=== PATIENT | female | born 1965 | race Caucasian/White ===

== ENCOUNTER 2016-10-30 08:07 | Day surgery (SDC) | payer MEDICARE, OTHER ==
[2016-10-27 15:00] VITALS: BMI 28.1
[~2016-10-30 08:07] MED LIST: LACTATED RINGERS 1,000 ML IV SCH; LIDOCAINE 1% 20 ML VIAL (10MG/ML) FOR IV START INTRADERMA PRN
[2016-10-30 09:29] VITALS: RESP 16; TEMP 97.1
[2016-10-30] MEDS ORDERED: PROPOFOL 10 MG/ML 20 ML VIAL IV ONE (10:46)
[2016-10-30] MEDS ORDERED: LIDOCAINE 1% INJ 10MG/ML (20 ML MDV) ONE (10:46)
--- NOTE | 2016-10-30 11:10 | P.OP ---
Date of Procedure: 10/30/16 Preoperative Diagnosis: GI bleed Postoperative Diagnosis: Internal hemorrhoids Procedure(s) Performed: Colonoscopy Anesthesia: MAC Surgeon: Lenin Solo Condition: stable Disposition: PACU Description of Procedure: The patient's placed on the endoscopy table in the lateral position. She received IV sedation. Digital rectal exam was performed which revealed internal hemorrhoids. Flexible colonoscope was then placed patient anus passed throughout the entire colon. The ileocecal valve was visualized. The cecum, ascending and transverse colon appeared normal. The descending and sigmoid colon appeared normal. Scope summer back the rectum this appeared normal. Scope was withdrawn through the anus and there was internal hemorrhoids noted. Scope was withdrawn for patient.
--- NOTE | 2016-10-30 11:12 | P.GSHP ---
History of Present Illness H&P Date: 10/30/16 Chief Complaint: GI bleed This a 51-year-old female who has had issues with rectal bleeding. He presents today for colonoscopy Past Medical History Past Medical History: Fibromyalgia, GERD/Reflux, Hyperlipidemia, Memory Impairment, Osteoarthritis (OA), Thyroid Disorder Additional Past Medical History / Comment(s): multiple brain aneurysm's 2007- affected memory & coordination, Testing scheduled for sleep apnea., Some problems with balance., states knee pain and headaches. History of Any Multi-Drug Resistant Organisms: None Reported Past Surgical History: Joint Replacement, Tubal Ligation Additional Past Surgical History / Comment(s): brain surgery to repair aneurysm' s, Tavo total knees, Past Anesthesia/Blood Transfusion Reactions: No Reported Reaction Past Psychological History: Anxiety, Depression Smoking Status: Former smoker Past Alcohol Use History: None Reported, Rare Additional Past Alcohol Use History / Comment(s): quit smoking 2008. smoked 1/ 2 ppd. smoked 30 years. Past Drug Use History: Marijuana Additional Drug Use History / Comment(s): medical card- states daily use. - Past Family History Father Family Medical History: AFIB, Myocardial Infarction ([place]) Mother Family Medical History: Cancer, Renal Disease Additional Family Medical History / Comment(s): Breast Cancer Medications and Allergies Home Medications Medication Instructions Recorded Confirmed Type ALPRAZolam [Xanax] 1 mg PO QID PRN 12/19/13 10/30/16 History Cyclobenzaprine [Flexeril] 10 mg PO TID PRN 12/19/13 10/30/16 History FLUoxetine HCL [PROzac] 20 mg PO BID 12/19/13 10/30/16 History Fenofibrate,Micronized 67 mg PO BID 12/19/13 10/30/16 History [Fenofibrate] Ferrous Sulfate [Feosol] 325 mg PO DAILY 12/19/13 10/30/16 History HYDROcodone/APAP 10-325MG [[place] 1 each PO Q6H PRN 12/19/13 10/30/16 History 10] Levothyroxine Sodium [Synthroid] 50 mcg PO DAILY 12/19/13 10/30/16 History Omeprazole [PriLOSEC] 40 mg PO BID 12/19/13 10/30/16 History Pregabalin [Lyrica] 300 mg PO BID 12/19/13 10/30/16 History Simvastatin [Zocor] 40 mg PO HS 12/19/13 10/30/16 History traZODone HCL 100 mg PO HS 12/19/13 10/30/16 History Aspirin [Adult Low Dose Aspirin EC] 81 mg PO DAILY 10/27/16 10/30/16 History Baclofen [Lioresal] 20 mg PO TID 10/27/16 10/30/16 History Allergies Allergy/AdvReac Type Severity Reaction Status Date / Time adhesive tape Allergy Unknown Rash/Hives Verified 10/30/16 09:28 ibuprofen [From Motrin] AdvReac STOMACH Verified 10/30/16 09:28 PAIN Surgical - Exam Vital Signs Temp Pulse Resp BP Pulse Ox 97.1 F L 76 16 147/92 98 10/30/16 09:14 10/30/16 09:14 10/30/16 09:14 10/30/16 09:14 10/30/16 09:14 - General well developed, no distress - Eyes PERRL - ENT normal pinna - Neck no masses - Respiratory normal expansion - Cardiovascular Rhythm: regular - Abdomen Abdomen: soft, non tender Assessment and Plan Plan: GI bleed. We'll perform colonoscopy.
[2016-10-30] MEDS ORDERED: LABETALOL 5 MG/ML VIAL MDV IVP ONE (11:44)
[2016-10-30 12:08] VITALS: BP 147/97; PULSE 66
== END 2016-10-30 12:26 | disposition home or self-care (01) ==
LOC: ORWHC2ENDO 08:07
PROVIDERS: ATTEND Surgery
DX: K64.8 Other hemorrhoids (principal); E78.5 Hyperlipidemia, unspecified; M79.7 Fibromyalgia; K21.9 Gastro-esophageal reflux disease without esophagitis; E07.9 Disorder of thyroid, unspecified; F41.9 Anxiety disorder, unspecified; M19.90 Unspecified osteoarthritis, unspecified site; F32.9 Major depressive disorder, single episode, unspecified; Z79.1 Long term (current) use of non-steroidal anti-inflammatories (NSAID); Z87.891 Personal history of nicotine dependence; Z79.899 Other long term (current) drug therapy; Z79.82 Long term (current) use of aspirin; Z79.891 Long term (current) use of opiate analgesic
CPT/HCPCS: 81025; 45378; J2001; J2704

== ENCOUNTER → 2017-01-01 | Outpatient (CLI) | payer MEDICARE, OTHER ==
[2017-01-01 14:16] LABS: Anisocytosis Slight; Basophils # (A) 0.1 k/uL (0-0.2); Basophils % (A) 1 %; CH 28.8; CHCM 30.9; Eosinophils # (A) 0.1 k/uL (0-0.7); Eosinophils % (A) 1 %; HCT 44.7 % (34.0-46.0); HDW 2.67; Hypochromasia Slight; Luc # (Auto) 0.17; Luc % (Auto) 1; Lymphocytes % (A) 20 %; MCH 29.4 pg (25.0-35.0); MCHC 31.3 g/dL (31.0-37.0); MCV 93.9 fL (80.0-100.0); Mean Platelet Volume 9.1; Monocytes # (A) 0.7 k/uL (0-1.0); Monocytes % (A) 4 %; Neutrophils # (A) 11.1 k/uL (1.3-7.7); Neutrophils % (A) 73 %; RBC 4.76 m/uL (3.80-5.40); RDW 16.1 % (11.5-15.5); WBC 15.2 k/uL (3.8-10.6); WBC (Perox) 14.62
== END | disposition home or self-care (01) ==
LOC: LABPAT 13:33
PROVIDERS: ATTEND Obstetrics & Gynecology
DX: Z01.810 Encounter for preprocedural cardiovascular examination (principal); E03.9 Hypothyroidism, unspecified; R94.31 Abnormal electrocardiogram [ECG] [EKG]; N92.0 Excessive and frequent menstruation with regular cycle; Z01.812 Encounter for preprocedural laboratory examination
CPT/HCPCS: 36415; 85025; 93005

== ENCOUNTER → 2017-07-21 | Outpatient (CLI) | payer MEDICARE, OTHER ==
--- NOTE | 2017-07-22 08:25 | ECHOF ---
Referral Reason:R07.9 Chest pain MEASUREMENTS -------- HEIGHT: 162.6 cm WEIGHT: 78.0 kg BP: 124/81 RVIDd: 2.8 cm (< 3.3) IVSd: 1.1 cm (0.6 - 1.1) LVIDd: 3.9 cm (3.9 - 5.3) LVPWd: 1.1 cm (0.6 - 1.1) IVSs: 1.5 cm LVIDs: 2.5 cm LVPWs: 1.4 cm LA Diam: 3.1 cm (2.7 - 3.8) LAESV Index (A-L): 20.71 ml/m Ao Diam: 3.2 cm (2.0 - 3.7) AV Cusp: 2.0 cm (1.5 - 2.6) MV EXCURSION: 13.189 mm (> 18.000) MV EF SLOPE: 61 mm/s (70 - 150) EPSS: 0.6 cm MV E Isai: 0.75 m/s MV DecT: 222 ms MV A Isai: 0.75 m/s MV E/A Ratio: 1.00 FINDINGS -------- Sinus rhythm. This was a technically adequate study. The left ventricular size is normal. There is borderline concentric left ventricular hypertrophy. Overall left ventricular systolic function is normal with, an EF between 55 - 60 %. The right ventricle is normal in size. Normal LA size by volume 22+/-6 ml/m2. The right atrium is normal in size. The aortic valve is trileaflet and appears structurally normal. The mitral valve is normal. The tricuspid valve appears structurally normal. Mild tricuspid regurgitation present. There is no pulmonic regurgitation present. The aortic root size is normal. Normal inferior vena cava with normal inspiratory collapse consistent with estimated right atrial pre ssure of 5 mmHg. The inferior vena cava is mildly dilated. There is no pericardial effusion. CONCLUSIONS -------- 1. Sinus rhythm. 2. This was a technically adequate study. 3. The left ventricular size is normal. 4. There is borderline concentric left ventricular hypertrophy. 5. Overall left ventricular systolic function is normal with, an EF between 55 - 60 %. 6. Normal LA size by volume 22+/-6 ml/m2. 7. The aortic valve is trileaflet and appears structurally normal. 8. The mitral valve is normal. 9. The tricuspid valve appears structurally normal. 10. Mild tricuspid regurgitation present. 11. There is no pulmonic regurgitation present. 12. The aortic root size is normal. 13. Normal inferior vena cava with normal inspiratory collapse consistent with estimated right atrial pressure of 5 mmHg. 14. The inferior vena cava is mildly dilated. 15. There is no pericardial effusion. UTILITY APPRAISER: Ligia Gibson RDCS
== END | disposition home or self-care (01) ==
LOC: RADECHMAIN 14:55
PROVIDERS: ATTEND Family Medicine
DX: I07.1 Rheumatic tricuspid insufficiency (principal); I86.8 Varicose veins of other specified sites
CPT/HCPCS: 93306

== ENCOUNTER → 2017-09-10 | Outpatient (CLI) | payer MEDICARE ==
--- NOTE | 2017-09-11 08:52 | XR ---
EXAM TYPE: LUMBAR SPINE X RAY SERIES COMPARISON: NONE HISTORY: Pain TECHNIQUE: 3 views are submitted. FINDINGS: Alignment is anatomic. The pedicles are intact. The transverse processes are intact. There is hype rtrophic and degenerative change of the spine. Vascular calcifications are noted. IMPRESSION: 1. Multilevel degenerative disc disease.
== END | disposition home or self-care (01) ==
LOC: RADXRMAIN 16:11
PROVIDERS: ATTEND Family Medicine
DX: M51.36 Other intervertebral disc degeneration, lumbar region (principal)
CPT/HCPCS: 72100

== ENCOUNTER → 2017-09-15 | Outpatient (CLI) | payer MEDICARE ==
--- NOTE | 2017-09-16 13:37 | MM ---
Reason for exam: clinical finding. Last mammogram was performed 2 years and 3 months ago. History: Family history of breast cancer in mother at age 50. Physical Findings: Nurse did not find any significant physical abnormalities on exam. MG 3D Diag Mammo W/Cad MATEUS Bilateral CC and MLO view(s) were taken. Prior study comparison: June 19, 2015, bilateral MG diagnostic mammo w CAD MATEUS. July 11, 2014, bilateral MG screening mammo w CAD. The breast tissue is heterogeneously dense. This may lower the sensitivity of mammography. No significant new findings when compared with previous films. These results were verbally communicated with the patient and result sheet given to the patient on 09/15/17. ASSESSMENT: Negative, BI-RAD 1 RECOMMENDATION: Routine screening mammogram of both breasts in 1 year. Manage on a clinical basis with regard to bilateral breast pain.
== END ==
LOC: RADMAMWWP 10:12
PROVIDERS: ATTEND Obstetrics & Gynecology
DX: N64.4 Mastodynia (principal)
CPT/HCPCS: 77066; G0279; 77062

== ENCOUNTER → 2019-03-04 | Outpatient (CLI) | payer MEDICARE, OTHER ==
--- NOTE | 2019-03-05 22:04 | MR ---
EXAMINATION TYPE: MR cervical spine wo con DATE OF EXAM: 03/04/2019 COMPARISON: HISTORY: Cervicalagia TECHNIQUE: Multiplanar, multisequence images of the cervical spine were acquired. C2-C3: No evidence for degenerative disc disease. No disc bulge/herniation or protrusion. No Canal stenosis. Foramina are patent bilaterally. C3-C4: Small posterior disc bulge is present. No spinal stenosis or foraminal encroachment. C4-C5: Small posterior broad-based disc bulge is present. No significant foraminal encroachment or sp inal stenosis. C5-C6: Broad-based disc bulge causes anterior mass effect on the thecal sac. Uncovertebral joint hype rtrophy results in some mild foraminal encroachment left greater than right. C6-C7: Posterior disc bulge causes minimal anterior mass effect on the thecal sac. No significant spi nal stenosis or foraminal encroachment. C7-T1: No evidence for degenerative disc disease. No disc bulge/herniation or protrusion. No Canal stenosis. Foramina are patent bilaterally. Cervical segments are intact. There is normal alignment. Cervical spinal cord is of normal signal. Craniovertebral junction relationships are within normal limits. IMPRESSION: Mild degenerative disc disease.
== END | disposition home or self-care (01) ==
LOC: RADMRIMAIN 12:07
PROVIDERS: ATTEND Neurological Surgery
DX: M50.10 Cervical disc disorder with radiculopathy, unspecified cervical region (principal)
CPT/HCPCS: 72141

== ENCOUNTER → 2020-05-15 | Outpatient (CLI) | payer MEDICARE ==
--- NOTE | 2020-05-17 13:48 | MM ---
Reason for exam: screening (asymptomatic). Last mammogram was performed 2 years and 8 months ago. History: Family history of breast cancer in mother at age 50. Physical Findings: A clinical breast exam by your physician is recommended on an annual basis and results should be correlated with mammographic findings. MG 3D Screening Mammo W/Cad Bilateral CC and MLO view(s) were taken. Prior study comparison: September 15, 2017, bilateral MG 3d diag mammo w/cad MATEUS. June 19, 2015, bilateral MG diagnostic mammo w CAD MATEUS. There are scattered fibroglandular densities. There is chronic nodularity bilaterally. No significant changes when compared with prior studies. ASSESSMENT: Benign, BI-RAD 2 RECOMMENDATION: Routine screening mammogram of both breasts in 1 year.
== END | disposition home or self-care (01) ==
LOC: RADMAMWWP 11:46
PROVIDERS: ATTEND Obstetrics & Gynecology
DX: Z12.31 Encounter for screening mammogram for malignant neoplasm of breast (principal); Z80.3 Family history of malignant neoplasm of breast
CPT/HCPCS: 77063; 77067

== ENCOUNTER 2021-03-28 09:15 | Day surgery (SDC) | payer MEDICARE ==
[2021-03-27 10:19] VITALS: BMI 28.3
[~2021-03-28 09:15] MED LIST changes: -LACTATED RINGERS 1,000 ML IV SCH; +LIDOCAINE 1% (10MG/ML) FOR IV START INTRADERMA PRN; -LIDOCAINE 1% 20 ML VIAL (10MG/ML) FOR IV START INTRADERMA PRN
[2021-03-28 09:56] VITALS: RESP 16; TEMP 97.3
[2021-03-28] MEDS: LACTATED RINGERS 1,000 ML IV SCH ×2 (10:00→10:28)
[2021-03-28] MEDS ORDERED: hydrALAZINE HCL 20 MG/ML 1 ML VIAL IV ONE (10:13)
--- NOTE | 2021-03-28 10:26 | P.GSHP ---
History of Present Illness H&P Date: 03/28/21 Chief Complaint: Rectal bleeding This a 55-year-old female who presents today for colonoscopy. She's had issues with rectal bleeding. Past Medical History Past Medical History: Fibromyalgia, GERD/Reflux, Hyperlipidemia, Memory Impairm ent, Osteoarthritis (OA), Thyroid Disorder Additional Past Medical History / Comment(s): Multiple brain aneurysms, last in 2007, affected memory and coordination, has problems with balance. Chronic knee pain and headaches. History of Any Multi-Drug Resistant Organisms: None Reported Past Surgical History: Joint Replacement, Tubal Ligation Additional Past Surgical History / Comment(s): Brain surgery to repair aneurysms, bilateral total knee replacements. Past Anesthesia/Blood Transfusion Reactions: No Reported Reaction Past Psychological History: Anxiety, Depression Smoking Status: Former smoker Past Alcohol Use History: None Reported Additional Past Alcohol Use History / Comment(s): Quit smoking in 2008, smoked 1/2 ppd for 30 years. Past Drug Use History: Marijuana Additional Drug Use History / Comment(s): Medical Marijuana - daily use. Aware no use 24 hrs prior to procedure. - Past Family History Father Family Medical History: AFIB, Myocardial Infarction ([place]) Mother Family Medical History: Cancer Additional Family Medical History / Comment(s): Breast Cancer. Medications and Allergies Home Medications Medication Instructions Recorded Confirmed Type ALPRAZolam [Xanax] 1 mg PO QID 12/19/13 03/27/21 History FLUoxetine HCL [PROzac] 20 mg PO BID 12/19/13 03/27/21 History HYDROcodone/APAP 10-325MG [[place] 1 tab PO QID PRN 12/19/13 03/27/21 History 10] Levothyroxine Sodium [Synthroid] 50 mcg PO DAILY 12/19/13 03/27/21 History Omeprazole [PriLOSEC] 40 mg PO BID 12/19/13 03/27/21 History Pregabalin [Lyrica] 300 mg PO BID 12/19/13 03/27/21 History Simvastatin [Zocor] 40 mg PO HS 12/19/13 03/27/21 History traZODone HCL 100 mg PO HS 12/19/13 03/27/21 History Aspirin [Adult Low Dose Aspirin EC] 81 mg PO DAILY 10/27/16 03/27/21 History Baclofen [Lioresal] 20 mg PO TID PRN 10/27/16 03/27/21 History Calcium Polycarbophil [Fiber-Lax] 625 mg PO BID 01/13/17 03/27/21 History Fenofibrate 160 mg PO DAILY 01/13/17 03/27/21 History Allergies Allergy/AdvReac Type Severity Reaction Status Date / Time adhesive tape Allergy Unknown Rash/Hives Verified 03/28/21 10:08 ibuprofen [From Motrin] AdvReac STOMACH Verified 03/28/21 10:08 PAIN Surgical - Exam Vital Signs Temp Pulse Resp BP Pulse Ox 97.3 F L 92 16 214/103 96 03/28/21 09:54 03/28/21 09:54 03/28/21 09:54 03/28/21 09:54 03/28/21 09:54 - General well developed, well nourished, no distress - Eyes PERRL - ENT normal pinna - Neck no masses - Respiratory normal expansion - Cardiovascular Rhythm: regular - Abdomen Abdomen: soft, non tender Assessment and Plan Assessment: Rectal bleeding. We'll perform colonoscopy.
[2021-03-28] MEDS ORDERED: GLUCAGON 1 MG/ML VIAL ONE (10:29)
[2021-03-28] MEDS ORDERED: PROPOFOL 10 MG/ML 20 ML VIAL IV ONE (10:29)
[2021-03-28] MEDS ORDERED: LIDOCAINE 1% INJ 10MG/ML (20 ML MDV) ONE (10:29)
[2021-03-28] MEDS ORDERED: LABETALOL 5 MG/ML VIAL MDV ONE (10:29)
--- NOTE | 2021-03-28 10:56 | P.OP ---
Date of Procedure: 03/28/21 Preoperative Diagnosis: Rectal bleeding Postoperative Diagnosis: External hemorrhoids Procedure(s) Performed: Colonoscopy Anesthesia: MAC Surgeon: Lenin Solo Pathology: none sent Condition: stable Disposition: PACU Description of Procedure: Patient's placed on the endoscopy table in the lateral position. She received IV sedation. Digital rectal exam was performed which revealed external hemorrhoids. Flexible colonoscope was then placed patient anus passed throughout colon. The scope was passed beyond the sigmoid colon to tortuous valve. At this point the scope was withdrawn. A pediatric scope was inserted.. Scope was safely placed throughout the entire colon. Ileocecal valve was visua lized. Cecum, ascending and transverse colon appeared normal. In the descending; a few scattered diverticula. Scope was then brought back the rectum and this appeared normal. Scope withdrawn for patient. His presumed patient may have had rectal bleeding from hemorrhoids.
[2021-03-28 11:19] VITALS: BP 179/116; PULSE 73
== END 2021-03-28 11:52 | disposition home or self-care (01) ==
LOC: ORWHC2ENDO 09:15
PROVIDERS: ATTEND Surgery
DX: K64.4 Residual hemorrhoidal skin tags (principal); K57.30 Diverticulosis of large intestine without perforation or abscess without bleeding; K62.5 Hemorrhage of anus and rectum; Q43.8 Other specified congenital malformations of intestine; M79.7 Fibromyalgia; K21.9 Gastro-esophageal reflux disease without esophagitis; E78.5 Hyperlipidemia, unspecified; R41.3 Other amnesia; E07.9 Disorder of thyroid, unspecified; G89.29 Other chronic pain; M25.569 Pain in unspecified knee; Z96.653 Presence of artificial knee joint, bilateral; Z98.51 Tubal ligation status; F41.9 Anxiety disorder, unspecified; F32.A Depression, unspecified; Z87.891 Personal history of nicotine dependence; Z82.49 Family history of ischemic heart disease and other diseases of the circulatory system; Z80.3 Family history of malignant neoplasm of breast; Z79.82 Long term (current) use of aspirin; Z79.890 Hormone replacement therapy; Z79.899 Other long term (current) drug therapy; Z88.6 Allergy status to analgesic agent; Z91.09 Other allergy status, other than to drugs and biological substances
CPT/HCPCS: 45378; J0360; J1610; J2001; J2704

== ENCOUNTER → 2021-04-16 | Day surgery (SDC) | payer MEDICARE ==
[2021-04-12 11:44] VITALS: BMI 29.2
[~2021-04-16] MED LIST changes: +ACETAMINOPHEN TAB 500 MG TAB PO PRN; +BUPIVACAIN-EPI 0.25%-1:200,000 30 ML VIAL SQ ONE; +DEXAMETHASONE SOD PHOSPHATE 4 MG/ML 1 ML VIAL IV ONE; +GELATIN SPONGE,ABSORB (LARGE) 1 EACH SPONGE TOPICAL ONE; +HEPARIN SODIUM,PORCINE/PF 5,000 UNIT/0.5 ML SYRINGE SQ PRN; +HYDROmorphone 0.5 MG/0.5 ML SYRINGE IVP PRN; +LACTATED RINGERS 1,000 ML IV SCH; -LIDOCAINE 1% (10MG/ML) FOR IV START INTRADERMA PRN; +LIDOCAINE 1% INJ 10MG/ML (20 ML MDV) ONE; +MIDAZOLAM 2 MG/2 ML VIAL ONE; +ONDANSETRON 4 MG/2 ML VIAL IVP ONE; +PROPOFOL 10 MG/ML 20 ML VIAL IV ONE; +Pre Op ABX Message 1 EACH MISC MISCELLANE ONE; +SUCCINYLCHOLINE CHLORIDE 100 MG/5 ML SYR IV ONE; +fentaNYL (PF) 50 MCG/ML 2 ML AMP ONE
--- NOTE | 2021-04-16 08:32 | P.GSHP ---
History of Present Illness H&P Date: 04/16/21 Chief Complaint: Internal and external hemorrhoids This a 56-year-old female who presents today for internal and external hemorrhoidectomy. Patient's had issues with rectal pain and bleeding and itching. Past Medical History Past Medical History: Fibromyalgia, GERD/Reflux, Hyperlipidemia, Memory Impairment, Osteoarthritis (OA), Thyroid Disorder Additional Past Medical History / Comment(s): Multiple brain aneurysms, last in 2007, affected memory and coordination, has problems with balance. Chronic knee pain and headaches. History of Any Multi-Drug Resistant Organisms: None Reported Past Surgical History: Joint Replacement, Tubal Ligation Additional Past Surgical History / Comment(s): Brain surgery to repair aneurysms, bilateral total knee replacements. Past Anesthesia/Blood Transfusion Reactions: No Reported Reaction Past Psychological History: Anxiety, Depression Smoking Status: Former smoker Past Alcohol Use History: None Reported Additional Past Alcohol Use History / Comment(s): Quit smoking in 2008, smoked 1/2 ppd for 30 years. Past Drug Use History: Marijuana Additional Drug Use History / Comment(s): Medical Marijuana - daily use. Aware no use 24 hrs prior to procedure. - Past Family History Father Family Medical History: AFIB, Myocardial Infarction ([place]) Mother Family Medical History: Cancer Additional Family Medical History / Comment(s): Breast Cancer. Medications and Allergies Home Medications Medication Instructions Recorded Confirmed Type ALPRAZolam [Xanax] 1 mg PO QID 12/19/13 04/12/21 History FLUoxetine HCL [PROzac] 20 mg PO BID 12/19/13 04/12/21 History HYDROcodone/APAP 10-325MG [[place] 1 tab PO QID PRN 12/19/13 04/12/21 History 10] Levothyroxine Sodium [Synthroid] 50 mcg PO DAILY 12/19/13 04/12/21 History Omeprazole [PriLOSEC] 40 mg PO BID 12/19/13 04/12/21 History Pregabalin [Lyrica] 300 mg PO BID 12/19/13 04/12/21 History Simvastatin [Zocor] 40 mg PO HS 12/19/13 04/12/21 History traZODone HCL 100 mg PO HS 12/19/13 04/12/21 History Aspirin [Adult Low Dose Aspirin EC] 81 mg PO DAILY 10/27/16 04/12/21 History Baclofen [Lioresal] 20 mg PO TID PRN 10/27/16 04/12/21 History Calcium Polycarbophil [Fiber-Lax] 625 mg PO BID 01/13/17 04/12/21 History Fenofibrate 160 mg PO DAILY 01/13/17 04/12/21 History Allergies Allergy/AdvReac Type Severity Reaction Status Date / Time adhesive tape Allergy Unknown Rash/Hives Verified 04/16/21 06:43 ibuprofen [From Motrin] AdvReac STOMACH Verified 04/16/21 06:43 PAIN Surgical - Exam Vital Signs Temp Pulse Resp BP Pulse Ox 97.6 F 79 16 151/86 95 04/16/21 06:55 04/16/21 06:55 04/16/21 06:55 04/16/21 06:55 04/16/21 06:55 - General well developed, well nourished, no distress - Eyes PERRL - ENT normal pinna - Neck no masses - Respiratory normal expansion - Cardiovascular Rhythm: regular - Abdomen Abdomen: soft, non tender Assessment and Plan Assessment: Internal and external hemorrhoids. We'll perform hemorrhoidectomy
--- NOTE | 2021-04-16 08:35 | P.OP ---
Date of Procedure: 04/16/21 Preoperative Diagnosis: Internal and external hemorrhoids Postoperative Diagnosis: Internal and external hemorrhoids Rectal prolapse Procedure(s) Performed: Internal and external hemorrhoidectomy Anesthesia: EUSEBIO Surgeon: Lenin Solo Pathology: other (Internal and external hemorrhoids) Condition: stable Disposition: PACU Description of Procedure: The patient's placed on the operative table in the prone position after receiving general endotracheal tube anesthesia. Her anus was prepped and draped usual sterile fashion. The anus was injected with 1% local Xylocaine. The patient had internal hemorrhoids. The left lateral hemorrhoidal column was grasped with a pair of Allis clamps after the anal retractors placed and anus. The rectus performed using the Harmonic scissors. The wound was oversewn with 3-0 Vicryl suture. Next the right anterior hemorrhoid column was excised in similar fashion. The patient had an element of rectal prolapse. This was noted when she strained. There is no bleeding seen. A piece of Gelfoam was placed patient anus. Patient top she will was sent to recovery in stable condition.
[2021-04-16 08:43] VITALS: TEMP 97.2
[2021-04-16 09:05] VITALS: RESP 16
[2021-04-16 09:53] VITALS: BP 163/89; PULSE 74
== END | disposition home or self-care (01) ==
LOC: OR 06:23
PROVIDERS: ATTEND Surgery
DX: K64.4 Residual hemorrhoidal skin tags (principal); K64.8 Other hemorrhoids; K62.3 Rectal prolapse; E78.5 Hyperlipidemia, unspecified; E07.9 Disorder of thyroid, unspecified; F41.9 Anxiety disorder, unspecified; F32.A Depression, unspecified; Z79.891 Long term (current) use of opiate analgesic; Z96.653 Presence of artificial knee joint, bilateral; Z98.890 Other specified postprocedural states; Z79.890 Hormone replacement therapy; Z79.899 Other long term (current) drug therapy; Z88.6 Allergy status to analgesic agent
CPT/HCPCS: 88304; 46260; J2250; J1100; J2405; J2001; J3010; J0330; J2704; J1644

== ENCOUNTER → 2021-07-31 | Outpatient (CLI) | payer MEDICARE ==
--- NOTE | 2021-07-31 10:57 | P.PAINPG ---
Objective - Vital Signs Vital signs: Intake & Output 07/30/21 07/31/21 07/31/21 18:59 06:59 18:59 Weight 74.843 kg PQRS Measure Charge Sheet Comment: HISTORY OF PRESENT ILLNESS: 56 yr old female as a referral from Dr. Chou presents today for severe and chronic LBP for years secondary to BL sacroiliitis for evaluation. Pt states her pain level is really at 8 out of 10 in intensity, constant, sore, stabbing pain in the lower aspect of her lumbar spine where it meets her tailbone, left greater than right and is provoked with standing for periods of 15 minutes or more. Pain is relieved with medications ([place], Lyrica), injections in the past, heat, physical therapy to start this month as she has had 6 weeks of physical therapy in 2019, home stretching regimen, use of a cane and lumbar support brace for ambulation, repositioning and rest. Past Medical History: Fibromyalgia, GERD/Reflux, Hyperlipidemia, Memory Impairment, Osteoarthritis (OA), Thyroid Disorder, MDD, Anxiety Past Surgical History: Knee Replacement, Tubal Ligation, Cerebral Aneurysm (2007) Social History: 15 pack yr tobacco user, +Cannabis use, No ETOH abuse. Past Alcohol Use History: None Reported Family History: Father- AFIB, [place]. Mother- Breast CA All: See list Meds: See list REVIEW OF ORGAN SYSTEMS: CONSTITUTIONAL: No fevers or chills. No recent weight loss. HEENT: No visual acuity loss, eye pain, difficulties with hearing. No nosebleeds. No difficulty swallowing. RESPIRATORY: Denies any troubles with breathing or dyspnea on exertion. CARDIOVASCULAR: Denies any chest pain, palpitations, or recent heart attacks. GASTROINTESTINAL: Denies fatty food intolerance. Has change in bowel habits and gas bloat. GENITOURINARY: Denies any blood in urine. Has increased urinary frequency. NEUROLOGICAL: + numbness and tingling along the distal extremities. No seizure disorders or headaches. MUSCULOSKELETAL: + back pain SKIN: No skin cancer. No rash. PSYCHIATRIC: Denies current depression or suicidal thoughts. ENDOCRINE: Denies current thyroid disorders. Denies any blood sugar glucose intolerance. HEME/LYMPHATIC: Denies any lumps and bumps around the neck. History of deep venous thrombosis. ALLERGY/IMMUNOLOGY: No immunoglobulin therapy. No immune deficiencies. BREAST: Denies current breast lumps, pain or nipple discharge. Physical Examinations : Constitutional : Cooperative , not in acute distress . HEENT: Neck supple. No Lymphadenopathy. Normal thyroid size . Eyes no ptosis , no icterus, no photophobia . Hearing intact. Normal oropharynx. No Thrush. Respiratory : Chest clear to auscultations bilaterally. No wheezing. No rhonchi. Cardiovascular : Regular rate and rhythm , S1 / S2. No S3 . No S4. Gastrointestinal : Abdomen soft. No tenderness. Bowel sounds x 4. No organomegaly . Genitourinary : Deferred. Neurologic : Cranial nerve II to XII intact. No focal neurological deficits. Psychiatric : alert & oriented x 3. Matching mood & appropriate affect. Judgment & insight intact. Lymphatic No Lymphadenopathy. Musculoskeletal : Cervical Spine Motor strength in the deltoid and biceps: Normal right side. Normal Left side Motor strength biceps and the wrist extensors: Normal right side . Normal left side Motor strength in the triceps muscle: Normal right side. Normal left side Deep tendon reflexes: Normal at the biceps. Normal at Brachioradialis. Normal at triceps Cervical facet loading test: positive bilaterally Spurling test: positive bilaterally Neck distraction test: positive bilaterally Paz sign: positive bilaterally Lumbar spine Motor strength lower extremities ,thigh and legs 5/5 Right side , 5/5 Left side Deep tendon reflexes : Normal Knee Jerk. Normal Ankle Jerk Vertebral body tenderness over Lumbar facet Loading Test: positive Right / positive Left Range of motion of the lumbar spine Flexion 30 degrees, extension 10 degrees Straight Leg Raise test: Left/ Right positive at degree Twin test: positive right / positive left. Severe tenderness over the Sacroiliac joint on the Right / Left sides Gaenslen test: positive bilaterally Seated flexion test: positive bilaterally. Sacral spine : Severe tenderness over the Sacroiliac joint: right side / left side Range of motion: Flexion of the lumbar spine <60 degrees Range of motion: Extension of the selma mbar spine <20 degrees Gaenslen's Test positive L>R Ayden's Test positive Twin test: positive right side < left side Thigh Thrust Test Sacral Thrust Test on the L Assessment/ Plan : Lumbar DDD, BL Sacroiliitis Recommendation of PT 3 x per week x 6 weeks Dx M51.36, M46.1 All questions answered. I have spent greater than 50 minutes on patient care today. Dr Kirkland was available by phone for the evaluation of this patient. The time was used to review the medical records including relevant urine studies and Prescription history (MAPs), review of the available imaging, evaluation and examination of the patient, coordination of care with the medical staff and if applicable referring physicians, as well as creation of the medical record PQRS Narrative: Smoking Status Never smoker Pain Intensity [Back] 10 Scale Used Numeric (1 - 10) Hx Alcohol Use (MH) No Home Medications: Ambulatory Orders ALPRAZolam [Xanax] 1 mg PO QID 12/19/13 FLUoxetine HCL [PROzac] 20 mg PO DAILY 12/19/13 HYDROcodone/APAP 10-325MG [[place] 10] 1 tab PO QID PRN 12/19/13 Levothyroxine Sodium [Synthroid] 50 mcg PO DAILY 12/19/13 Omeprazole [PriLOSEC] 40 mg PO BID 12/19/13 Pregabalin [Lyrica] 300 mg PO BID 12/19/13 Simvastatin [Zocor] 40 mg PO HS 12/19/13 traZODone HCL 100 mg PO HS 12/19/13 Baclofen [Lioresal] 20 mg PO TID PRN 10/27/16 Calcium Polycarbophil [Fiber-Lax] 625 mg PO BID 01/13/17 Fenofibrate 160 mg PO DAILY 01/13/17 Aspirin 325 mg PO DAILY 07/30/21 Bladder Support Supplement 2 tab PO QID 07/30/21 Cyclobenzaprine [Flexeril] 10 mg PO TID 07/30/21 Menopause Support 1 dose PO DAILY 07/30/21 Multivit-Min/FA/Lycopen/Lutein [Centrum Silver Tablet] 1 each PO DAILY 07/30/21 Ondansetron [Zofran] 4 mg PO QID PRN 07/30/21 [place] 1 dose PO DAILY 07/30/21 Vitamin B Complex 1 each PO DAILY 07/30/21 Vitamin C (Unknown Dose) 1 tab PO DAILY 07/30/21 Vitamin E (Unknown Dose) 1 tab PO DAILY 07/30/21 Controlled Substance Measures - Controlled Substance Measures Is patient prescribed a controlled substance at discharge?: No
[2021-07-31 12:18] VITALS: BP 115/94; PULSE 85; RESP 18; TEMP 98.2
== END ==
LOC: PNWHC3 10:16
PROVIDERS: ATTEND Specialist
DX: M46.1 Sacroiliitis, not elsewhere classified (principal); M51.36 Other intervertebral disc degeneration, lumbar region; E78.5 Hyperlipidemia, unspecified; M19.90 Unspecified osteoarthritis, unspecified site; F41.9 Anxiety disorder, unspecified; Z91.048 Other nonmedicinal substance allergy status; Z88.6 Allergy status to analgesic agent
CPT/HCPCS: 99211

== ENCOUNTER → 2022-02-06 | Outpatient (CLI) | payer MEDICARE ==
--- NOTE | 2022-02-06 15:51 | MR ---
EXAMINATION TYPE: MR lumbar spine wo con DATE OF EXAM: 02/06/2022 COMPARISON: Lumbar spine x-ray September 10, 2017. CT abdomen and pelvis January 20, 2017. HISTORY: Low back pain that radiates down both legs TECHNIQUE: Multiplanar, multisequence imaging of the lumbar spine is performed without IV contrast. FINDINGS: Sagittal images of the lumbar spine show vertebral body heights and alignment to remain sta ble and satisfactory. Multilevel disc desiccation but the disc space heights are maintained. The con us medullaris is normal in position and signal ending inferior L1 level. The bone marrow signal inte nsity is within normal limits. Axial images show T12-L1 and L1-L2 levels to appear within normal limits. Axial images at L2-L3 level shows a left paracentral/foraminal disc protrusion minimally effacing ant erolateral thecal sac and causing mild left-sided anterior inferior neural foraminal narrowing. Axial images at L3-L4 level shows mild broad-based disc bulge with more prominent left foraminal disc protrusion component. There is mild to moderate anterior-inferior left-sided neural foraminal narrow ing noted. Spinal canal is preserved. Axial images at L4-L5 level shows mild broad-based disc bulge with left paracentral disc protrusion c omponent causing moderate left anterior inferior neural foraminal narrowing. There is minimal effacem ent of the anterior thecal sac. Axial images at L5-S1 level shows tiny right foraminal disc protrusion component without significant neural foraminal narrowing. Mild facet arthropathy bilaterally. There is partial visualization of moderate to severe left-sided hydronephrosis and moderate proximal to mid hydroureter. Finding new from 2017 CT. IMPRESSION: Mild multilevel degenerative changes in lumbar spine as detailed above. Moderate to sever e left-sided hydronephrosis is now present and warrants further clinical workup.
== END | disposition home or self-care (01) ==
LOC: RADMRIMAIN 10:59
PROVIDERS: ATTEND Orthopaedic Surgery
DX: M47.26 Other spondylosis with radiculopathy, lumbar region (principal); N13.30 Unspecified hydronephrosis
CPT/HCPCS: 72148

== ENCOUNTER → 2022-02-12 | Outpatient (CLI) | payer MEDICARE ==
[2022-02-12 09:55] VITALS: BP 120/76; PULSE 74; RESP 18; TEMP 98.4
--- NOTE | 2022-02-12 10:14 | P.PN ---
Subjective Progress Note Date: 02/12/22 This is a follow-up visit for this 56 years old female with history of severe and chronic low back pain secondary to lumbar degenerative disc disease, and bilateral sacroiliitis, and she was referred to [facility] pain clinic for bilateral sacroiliac joint steroid injection, patient seen in the pain clinic in July 2021 but she did not follow up with us after that, and she did not do physical therapy, he continued to use Lyrica and [place] and baclofen, is getting prescription medication from her neurologist, patient's denies any motor or sensory deficit she denies any fever or night sweats she denies any change in her bowel movements or urination Objective - Vital Signs Vital signs: Vital Signs Temp 98.4 F 02/12/22 09:52 Pulse 74 02/12/22 09:52 Resp 18 02/12/22 09:52 BP 120/76 02/12/22 09:52 Pulse Ox 94 L 02/12/22 09:52 FiO2 Intake & Output 02/11/22 02/12/22 02/12/22 18:59 06:59 18:59 Weight 65.771 kg - Exam Physical Examinations : -Constitutiona : Cooperative , not in acute distress . -HEENT : nech : supple , no Lymphadenopathy , normal thyroid size . : eyes : no ptosis , no icterus, no photophobia . - neurologic : Cranial nerve II to XII intact , no focal neurological deffecit . -psychatric : alert , oriented X 3 , appropriate affect , intact judgment and insight . -Lymphatic : no Lymphadenopathy . - musculoskeltal : Lumber spine moter stegnth lower extremities ,thigh and legs 5/5 Right side , 5/5 Left side deep tendon reflexes : normal Knee Jerk , normal ankle Jerk lumber facet Loading Test =positive Right , positive Left Range of motion of the lumbar spine Flexion 30 degrees, extension 10 degrees strait leg raising test = negative bilaterally Fabere test= negative bilaterally. Sever tenderness over the Sacroiliac joint on the Right , and Left sides Gaenslen test= positive right ,and positive left . Seated flexion test= positive right ,and positive Left . Distraction test= positive bilaterally Sacroiliac compression test= positive bilaterally. MRI of the lumbar spine multilevel lumbar degenerative disc disease Assessment and Plan Plan: Assessment and plan= chronic low back pain secondary to lumbar degenerative disc disease , bilateral sacroiliitis. She could benefit from bilateral sacroiliac joint steroid injections under fluoroscopy guidance. Seizure risk and benefits and alternatives discussed with the patient she indicated the proceeding Time with Patient: Less than 30
== END ==
LOC: PNWHC3 08:02
PROVIDERS: ATTEND Specialist
DX: M47.816 Spondylosis without myelopathy or radiculopathy, lumbar region (principal); M46.1 Sacroiliitis, not elsewhere classified; Z91.048 Other nonmedicinal substance allergy status; Z88.6 Allergy status to analgesic agent
CPT/HCPCS: 99211

== ENCOUNTER → 2023-11-11 | Outpatient (CLI) | payer MEDICARE, OTHER ==
--- NOTE | 2023-11-11 16:47 | CT ---
EXAMINATION TYPE: CT angio neck, CT angiogram head. CT brain without contrast CT DLP: 236.3 (accession [id number]), 2008.1 (accession [id number]) mGycm, Automated exposure control for dose reduction was used. DATE OF EXAM: 11/11/2023 4:25 PM CLINICAL INDICATION: Female, 58 years old with history of I63.9 CEREBRAL INFARCTION, UNSPECIFIED; cva , hx of aneurysm COMPARISON: 10/16/2009 TECHNIQUE: CT of the head without contrast Axially acquired helical CT Angiogram of the Neck and brain was obtained with and without contrast. A xial images are supplemented with coronal and sagittal MIP reconstructions. 3D reconstructions were a lso performed and were post-processed at an independent workstation. Estimated carotid stenosis was c alculated using the NASCET criteria. Contrast used:100 mL of Isovue 370 with IV Contrast (accession [id number]), without and with IV Contras t (accession [id number]), Oral contrast used: , None. FINDINGS: CT HEAD: Extra-axial spaces: No abnormal extra-axial fluid collections. Ventricular system: Ventriculostomy tubing tip terminating near midline in the right lateral ventricl e. Tubing appears intact. No evidence of hydrocephalus Cerebral parenchyma: Encephalomalacia of the left DEANNA territory in the frontal lobe and right medial frontal lobe. No acute intraparenchymal hemorrhage or mass effect. The lay-white junction is well d ifferentiated. No abnormal enhancement is seen after the administration of intravenous contrast. Cerebellum: Unremarkable. Mass effect: No evidence of midline shift. Intracranial vasculature: unremarkable Soft tissues: Normal. Calvarium/osseous structures: No depressed skull fracture. Paranasal sinuses and mastoid air cells: Mucosal opacification of the left maxillary sinus. Visualized orbits: Orbital contents are intact. Vertebral arteries: The vertebral arteries are patent. Right dominant vertebral artery system. Basilar artery: The basilar artery is intact. 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 Internal Carotid arteries: The cervical, petrous, cavernous and supraclinoid segments are normal. Znaa gical clips in the right MCA without evidence of recurrent aneurysm. DEANNA: Patent with no evidence of aneurysm. ACOM: Present without evidence of aneurysm. MCA: Patent with no evidence of aneurysm. 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 PCOM: Hypoplastic bilaterally. Dural sinuses: Patent. CTA NECK: Right Carotid System: The common carotid and external carotid arteries are patent. There is approximately 25% stenosis at t he carotid bifurcation secondary to calcified/noncalcified plaquing. The rest of the internal carotid artery is patent. Left Carotid System: The common carotid and external carotid arteries are patent. There is approximately 25% stenosis at t he carotid bifurcation secondary to calcified/noncalcified plaquing. The rest of the internal carotid artery is patent. Vertebral arteries are patent without evidence hemodynamically significant stenosis. There is a 4-vessel aortic arch with an artery extending up towards inferior thyroid. The bilateral v ertebral arteries have traditional anatomy. Right dominant vertebral artery system. The origins of th e great vessels are patent. No evidence of hemodynamically significant stenosis. Treatment changes to the right middle cranial fossa from prior aneurysm. Basilar tip aneurysm remains measuring up to 4 mm. IMPRESSION: 1. 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 Correlate with priors at outside institution for stabili ty. 2. Right middle cranial fossa aneurysm clips without evidence of right MCA aneurysm. Left ventriculo stomy tubing appears evidence stable position. 3. New from 2010 encephalomalacia of the left frontal lobe and DEANNA territory and right frontal lobe near the cingulate gyrus. 4. Ventriculostomy tubing appears in satisfactory/similar position with tubing in tact. No evidence for hydrocephalus. 5. No evidence of dissection of the cervical internal carotid arteries or vertebral arteries or any evidence of significant stenosis at the carotid bifurcations. 6. No acute intracranial process. 7. Moderate left maxillary sinus paranasal sinus disease. [facility], , 11/11/2023 4:44 PM
== END | disposition home or self-care (01) ==
LOC: RADCTMAIN 15:04
PROVIDERS: ATTEND Psychiatry & Neurology Neurology
DX: I63.9 Cerebral infarction, unspecified
CPT/HCPCS: 70470; 70498

== ENCOUNTER → 2023-11-11 | Outpatient (CLI) | payer MEDICARE ==
--- NOTE | 2023-11-11 17:56 | US ---
EXAMINATION TYPE: US pelvis complete transvag DATE OF EXAM: 11/11/2023 COMPARISON: CT: 01/20/17 CLINICAL INDICATION: Female, 58 years old with history of N921 ABM MENSTRUAL CYCLE; pain x a couple m onths. . Hx of an ablation and 1 TECHNIQUE: . Transabdominal sonographic images of the pelvis were acquired. Transvaginal sonographi c images were medically necessary to better assess the following anatomy: uterus and ovaries Date of LMP: Years ago EXAM MEASUREMENTS: Uterus: 5.4 x 3.9 x 2.7 cm Endometrial Stripe: borders not well defined Right Ovary: not seen Left Ovary: not seen 1. Uterus: Anteverted wnl 2. Endometrium: borders not well vsiualized, heterogeneous 3. Right Ovary: not seen 4. Left Ovary: not seen 5. Bilateral Adnexa: excessive bowel gas. Small amount of free fluid seen in right adnexa 6. Posterior cul-de-sac: wnl IMPRESSION: Nonspecific heterogenous uterine myometrium. Small amount of fluid adjacent to the right adnexa. [facility], , 11/11/2023 5:54 PM
== END | disposition home or self-care (01) ==
LOC: RADMAMWWP 14:04
PROVIDERS: ATTEND Family Medicine
DX: N92.1 Excessive and frequent menstruation with irregular cycle (principal); N28.89 Other specified disorders of kidney and ureter
CPT/HCPCS: 76830; 76856

== ENCOUNTER → 2024-03-08 | Outpatient (CLI) | payer MEDICARE, OTHER ==
[2024-03-09 02:49] LABS: BUN/Creat Ratio 22.92 Ratio (12.00-20.00); Blood Urea Nitrogen 27.5 mg/dL (9.0-27.0); Chloride 104 mmol/L (96-109); Glucose 112 mg/dL (70-110); Potassium 4.6 mmol/L (3.5-5.5); Sodium 138 mmol/L (135-145)
[2024-03-09 02:50] LABS: ALT 14 U/L (8-44); AST 29 U/L (13-35); Albumin 4.8 g/dL (3.8-4.9); Albumin/Globulin Ratio 1.37 Ratio (1.60-3.17); Alkaline Phosphatase 46 U/L (41-126); Carbon Dioxide 21.6 mmol/L (21.6-31.8); Globulin 3.5 g/dL (1.6-3.3); Total Bilirubin <0.2 mg/dL (0.3-1.2); Total Protein 8.3 g/dL (6.2-8.2)
[2024-03-09 04:18] LABS: Basophils # (A) 0.09 X 10*3/uL (0.00-0.10); Basophils % (A) 1.3 %; Eosinophils # (A) 0.23 X 10*3/uL (0.04-0.35); Eosinophils % (A) 3.2 %; HCT 27.8 % (37.2-46.3); HGB 6.7 g/dL (12.0-15.0); Hypochromasia (M) 3+ (None Seen); Lymphocytes # (A) 1.41 X 10*3/uL (0.90-5.00); Lymphocytes % (A) 19.7 %; MCH 15.7 pg (27.0-32.0); MCHC 24.1 g/dL (32.0-37.0); MCV 65.1 FL (80.0-97.0); Microcytosis (M) 3+ (None Seen); Monocytes # (A) 0.56 X 10*3/uL (0.20-1.00); Monocytes % (A) 7.8 %; NRBC Per 100 WBC 0.02 X 10*3/uL (0.00-0.01); Neutrophils # (A) 4.83 X 10*3/uL (1.80-7.70); Neutrophils % (A) 67.6 %; Platelet Count 457 X 10*3/uL (140-440); RBC 4.27 X 10*6/uL (4.10-5.20); RDW 21.1 % (11.5-14.5); Schistocytes 1+ (None Seen); WBC 7.15 X 10*3/uL (4.50-10.00)
[2024-03-09 04:47] LABS: INR 0.95 sec (0.93-1.11); Prothrombin Time 10.7 sec (9.9-11.9)
== END | disposition home or self-care (01) ==
LOC: LABWHC1 15:09
PROVIDERS: ATTEND Family Medicine
DX: Z01.812 Encounter for preprocedural laboratory examination (principal); M24.00 Loose body in unspecified joint
CPT/HCPCS: 36415; 80053; 85025; 85610

== ENCOUNTER 2024-03-09 11:22 | Emergency (ER) | payer MEDICARE, OTHER ==
--- NOTE | 2024-03-09 11:53 | ED ---
Recheck HPI - General Source: patient, family, RN notes reviewed Mode of arrival: ambulatory Limitations: no limitations <Kanchan Bello - Last Filed: 03/09/24 18:25> <Uzma Short - Last Filed: 03/10/24 15:38> - General Chief Complaint: Recheck/Abnormal Lab/Rx Stated Complaint: Abn labs Time Seen by Provider: 03/09/24 11:45 - History of Present Illness Initial Comments: 58-year-old female with history of brain aneurysm sent to the ER by PCP for low hemoglobin. Patient states she has had anemia in the past requiring transfusions. States she follows with Dr. Conde for a brain aneurysm, last scan was approximately 3 months ago. Patient denies any acute symptoms. States she has chronic headaches due to the aneurysm however no change in the past several days. Denies vomiting, abdominal pain, black or tarry stools. Denies blood in stool. (Kanchan Bello) - Related Data Home Medications Medication Instructions Recorded Confirmed Levothyroxine Sodium [Synthroid] 50 mcg PO DAILY 12/19/13 03/09/24 Omeprazole [PriLOSEC] 40 mg PO BID 12/19/13 03/09/24 Fenofibrate 160 mg PO DAILY 01/13/17 03/09/24 Amitriptyline HCl [Elavil] 50 mg PO HS 03/21/22 03/09/24 Atorvastatin [Lipitor] 20 mg PO HS 03/21/22 03/09/24 levETIRAcetam 500 mg PO BID 03/21/22 03/09/24 Baclofen 10 mg PO HS 03/09/24 03/09/24 Bisoprolol/Hydrochlorothiazide 1 tab PO DAILY 03/09/24 03/09/24 [Bisoprolol/Hydrochlorothiazide 5-6.25 mg] DULoxetine HCL [Cymbalta] 30 mg PO DAILY 03/09/24 03/09/24 FLUoxetine HCL [PROzac] 40 mg PO DAILY 03/09/24 03/09/24 HYDROcodone/APAP 7.5-325MG [Roxana 1 tab PO TID PRN 03/09/24 03/09/24 7.5-325] LORazepam [Ativan] 0.5 mg PO HS 03/09/24 03/09/24 Midodrine HCl [ProAmatine] 10 mg PO BID 03/09/24 03/09/24 amLODIPine BESYLATE/BENAZEPRIL 1 cap PO DAILY 03/09/24 03/09/24 [amLODIPine BESYLATE/BENAZEPRIL 5-10 mg] traZODone HCL 150 mg PO HS 03/09/24 03/09/24 Allergies Allergy/AdvReac Type Severity Reaction Status Date / Time adhesive tape Allergy Unknown Rash/Hives Verified 03/09/24 16:28 ibuprofen [From Motrin] AdvReac STOMACH Verified 03/09/24 16:28 PAIN Review of Systems ROS Other: All systems not noted in ROS Statement are negative. <Kanchan Bello - Last Filed: 03/09/24 18:25> ROS Other: All systems not noted in ROS Statement are negative. <Uzma Short - Last Filed: 03/10/24 15:38> ROS Statement: Those systems with pertinent positive or pertinent negative responses have been documented in the HPI. Past Medical History Past Medical History: Fibromyalgia, GERD/Reflux, Hyperlipidemia, Memory Impairment, Osteoarthritis (OA), Thyroid Disorder Additional Past Medical History / Comment(s): Current brain aneurysm, has shunt in head to stomach. Multiple brain aneurysms, last in 2007, affected memory and coordination, has problems with balance. Chronic knee pain and headaches. History of Any Multi-Drug Resistant Organisms: None Reported Past Surgical History: Joint Replacement, Tubal Ligation Additional Past Surgical History / Comment(s): Brain surgery to repair aneurysms, shunt placed, bilateral total knee replacements. Past Anesthesia/Blood Transfusion Reactions: No Reported Reaction Past Psychological History: Anxiety, Depression Smoking Status: Former smoker - Past Family History Father Family Medical History: AFIB, Myocardial Infarction (MS) Mother Family Medical History: Cancer Additional Family Medical History / Comment(s): Breast Cancer. <Kanchan Bello - Last Filed: 03/09/24 18:25> General Exam Limitations: no limitations General appearance: alert, in no apparent distress Head exam: Present: atraumatic, normocephalic, normal inspection Eye exam: Present: normal appearance, PERRL, EOMI. Absent: scleral icterus, conjunctival injection, periorbital swelling ENT exam: Present: normal exam, mucous membranes moist Respiratory exam: Present: normal lung sounds bilaterally. Absent: respiratory distress, wheezes, rales, rhonchi, stridor Cardiovascular Exam: Present: regular rate, normal rhythm, normal heart sounds. Absent: systolic murmur, diastolic murmur, rubs, gallop, clicks GI/Abdominal exam: Present: soft, normal bowel sounds. Absent: distended, tenderness, guarding, rebound, rigid Neurological exam: Present: alert, oriented X3 Psychiatric exam: Present: normal affect, normal mood Skin exam: Present: warm, dry, intact, normal color. Absent: rash <Kanchan Bello - Last Filed: 03/09/24 18:25> Course Vital Signs 03/09/24 03/09/24 03/09/24 11:31 15:04 15:15 Temperature 98.1 F 98.3 F 98.3 F Pulse Rate 112 H 74 76 Respiratory 20 16 16 Rate Blood Pressure 117/66 100/77 110/75 O2 Sat by Pulse 95 97 97 Oximetry 03/09/24 03/09/24 03/09/24 15:20 15:40 16:31 Temperature 98.2 F 98.2 F 98.5 F Pulse Rate 73 72 77 Respiratory 14 16 16 Rate Blood Pressure 116/82 114/81 123/79 O2 Sat by Pulse 98 97 Oximetry 03/09/24 03/09/24 18:24 19:00 Temperature Pulse Rate 86 80 Respiratory 18 18 Rate Blood Pressure 108/80 110/84 O2 Sat by Pulse 98 Oximetry Medical Decision Making - Lab Data Result diagrams: 03/09/24 11:56 03/09/24 11:56 <Kanchan Bello - Last Filed: 03/09/24 18:25> - Lab Data Result diagrams: 03/09/24 11:56 03/09/24 11:56 <Uzma Short - Last Filed: 03/10/24 15:38> - Medical Decision Making Was pt. sent in by a medical professional or institution (, PA, INFORMATION RESOURCE CONSULTANT, urgent care, hospital, or snf...) When possible be specific @ -Sent by Dr. Irizarry for low hemoglobin Did you speak to anyone other than the patient for history (EMS, parent, family, police, friend...)? What history was obtained from this source @ -No Did you review nursing and triage notes (agree or disagree)? Why? @ -I reviewed and agree with nursing and triage notes Were old charts reviewed (outside hosp., previous admission, EMS record, old EKG, old radiological studies, urgent care reports/EKG's, snf records)? Report findings @ -No old charts were reviewed Differential Diagnosis (chest pain, altered mental status, abdominal pain women, abdominal pain men, vaginal bleeding, weakness, fever, dyspnea, syncope, headache, dizziness, GI bleed, back pain, seizure, CVA, palpatations, mental health, musculoskeletal)? @ -Hemorrhage, autoimmune hemolytic anemia, iron deficiency anemia, anemia of c hronic disease, thalassemia, sideroblastic anemia, infection EKG interpreted by me (3pts min.). @ -None X-rays interpreted by me (1pt min.). @ -None done CT interpreted by me (1pt min.). @ -CT brain reveals no acute intracranial process, right middle cranial fossa aneurysm clips without evidence of MCA aneurysm, prior basilar tip aneurysm measuring 5 x 4 not appreciated on this noncontrast exam U/S interpreted by me (1pt. min.). @ -None done What testing was considered but not performed or refused? (CT, X-rays, U/S, labs)? Why? @ -Recommended Hemoccult testing however patient declined What meds were considered but not given or refused? Why? @ -None Did you discuss the management of the patient with other professionals (professionals i.e. , PA, INFORMATION RESOURCE CONSULTANT, lab, RT, psych nurse, social service worker, photogrammetric tech, teacher, administrative officer, director of casework)? Give summary @ -No Was smoking cessation discussed for >3mins.? @ -No Was critical care preformed (if so, how long)? @ -No Were there social determinants of health that impacted care today? How? (Homelessness, low income, unemployed, alcoholism, drug addiction, transportation, low edu. Level, literacy, decrease access to med. care, nursing home, rehab)? @ -No Was there de-escalation of care discussed even if they declined (Discuss DNR or withdrawal of care, Hospice)? DNR status @ -No What co-morbidities impacted this encounter? (DM, HTN, Smoking, COPD, CAD, Cancer, CVA, ARF, Chemo, Hep., AIDS, mental health diagnosis, sleep apnea, morbid obesity)? @ -None Was patient admitted / discharged? Hospital course, mention meds given and route, prescriptions, significant lab abnormalities, going to OR and other pertinent info. @ -Discharge. This is a 58-year-old female sent by Dr. Irizarry for low hemoglobin. Patient has history of brain aneurysms that are being monitored by neurologist. Patient is currently asymptomatic. Patient is tachycardic at 112 bpm. Hemoglobin is 6.6. CT brain reveals no emergent or midline shift. Tachycardia resolved on reexamination. Discussed results with patient. Discussed that I recommend hemoccult for further investigation as to cause of anemia today. Patient shows understanding and declines Hemoccult testing. States she would like to receive transfusion and be discharged and follow-up with her PCP. I believe this is reasonable as there does not appear to be emergent etiology causing anemia today. Case was discussed with my ED attending Dr. Short Undiagnosed new problem with uncertain prognosis? @ -No Drug Therapy requiring intensive monitoring for toxicity (Heparin, Nitro, Insulin, Cardizem)? @ -No Were any procedures done? @ -No Diagnosis/symptom? @ -Microcytic anemia Acute, or Chronic, or Acute on Chronic? @ -Acute Uncomplicated (without systemic symptoms) or Complicated (systemic symptoms)? @ -Uncomplicated Side effects of treatment? @ -No Exacerbation, Progression, or Severe Exacerbation? @ -No Poses a threat to life or bodily function? How? (Chest pain, USA, MS, pneumonia, PE, COPD, DKA, ARF, appy, cholecystitis, CVA, Diverticulitis, Homicidal, Suicidal, threat to staff... and all critical care pts) @ -Not at this time (Kanchan Bello) critical care time of 35 minutes for transfusion of blood products (Uzma Short) - Lab Data Lab Results 03/09/24 03/09/24 03/09/24 Range/Units 11:45 11:56 11:56 WBC 6.7 (3.8-10.6) k/uL RBC 3.83 (3.80-5.40) m/uL Hgb 6.6 L* (11.4-16.0) gm/dL Hct 23.2 L (34.0-46.0) % MCV 60.6 L (80.0-100.0) fL MCH 17.1 L (25.0-35.0) pg MCHC 28.2 L (31.0-37.0) g/dL RDW 19.1 H (11.5-15.5) % Plt Count 371 (150-450) k/uL MPV 6.5 Neutrophils % (Manual) 64 % Lymphocytes % (Manual) 18 % Monocytes % (Manual) 13 % Eosinophils % (Manual) 4 % Basophils % (Manual) 1 % Neutrophils # (Manual) 4.29 (1.3-7.7) k/uL Lymphocytes # (Manual) 1.21 (1.0-4.8) k/uL Monocytes # (Manual) 0.87 (0-1.0) k/uL Eosinophils # (Manual) 0.27 (0-0.7) k/uL Basophils # (Manual) 0.07 (0-0.2) k/uL Nucleated RBCs 0 (0-0) /100 WBC Manual Slide Review Performed Hypersegmented Neuts Present Hypochromasia Marked Poikilocytosis Slight Poikilocytosis (manual Present Anisocytosis Slight Anisocytosis (manual) Present Microcytosis Marked Fragmented RBCs Present PT 10.5 (10.0-12.5) sec INR 0.9 (<1.2) APTT 19.4 L (22.0-30.0) sec Sodium (137-145) mmol/L Potassium (3.5-5.1) mmol/L Chloride (98-107) mmol/L Carbon Dioxide (22-30) mmol/L Anion Gap mmol/L BUN (7-17) mg/dL Creatinine (0.52-1.04) mg/dL Est GFR (CKD-EPI)AfAm (>60 ml/min/1.73 sqM) Est GFR (CKD-EPI)NonAf (>60 ml/min/1.73 sqM) Glucose (74-99) mg/dL Calcium (8.4-10.2) mg/dL Iron (50-170) UG/DL TIBC (228-460) UG/DL % Saturation (12.00-45.00) Transferrin (204.0-354.0) mg/dL Ferritin (10.0-291.0) ng/mL Total Bilirubin (0.2-1.3) mg/dL AST (14-36) U/L ALT (4-34) U/L Alkaline Phosphatase (38-126) U/L Total Protein (6.3-8.2) g/dL Albumin (3.5-5.0) g/dL Blood Type A Negative Blood Type Recheck A Neg Bld Type Recheck Status No Antibody Screen NEGATIVE Crossmatch See Detail Spec Expiration Date 03/12/2024 - 234403/09/24 03/09/24 Range/Units 11:56 14:40 WBC (3.8-10.6) k/uL RBC (3.80-5.40) m/uL Hgb (11.4-16.0) gm/dL Hct (34.0-46.0) % MCV (80.0-100.0) fL MCH (25.0-35.0) pg MCHC (31.0-37.0) g/dL RDW (11.5-15.5) % Plt Count (150-450) k/uL MPV Neutrophils % (Manual) % Lymphocytes % (Manual) % Monocytes % (Manual) % Eosinophils % (Manual) % Basophils % (Manual) % Neutrophils # (Manual) (1.3-7.7) k/uL Lymphocytes # (Manual) (1.0-4.8) k/uL Monocytes # (Manual) (0-1.0) k/uL Eosinophils # (Manual) (0-0.7) k/uL Basophils # (Manual) (0-0.2) k/uL Nucleated RBCs (0-0) /100 WBC Manual Slide Review Hypersegmented Neuts Hypochromasia Poikilocytosis Poikilocytosis (manual Anisocytosis Anisocytosis (manual) Microcytosis Fragmented RBCs PT (10.0-12.5) sec INR (<1.2) APTT (22.0-30.0) sec Sodium 139 (137-145) mmol/L Potassium 4.9 (3.5-5.1) mmol/L Chloride 104 (98-107) mmol/L Carbon Dioxide 24 (22-30) mmol/L Anion Gap 11 mmol/L BUN 31 H (7-17) mg/dL Creatinine 0.98 (0.52-1.04) mg/dL Est GFR (CKD-EPI)AfAm 73 (>60 ml/min/1.73 sqM) Est GFR (CKD-EPI)NonAf 63 (>60 ml/min/1.73 sqM) Glucose 89 (74-99) mg/dL Calcium 9.9 (8.4-10.2) mg/dL Iron 11 L (50-170) UG/DL TIBC 704 H (228-460) UG/DL % Saturation 1.56 L (12.00-45.00) Transferrin 503.0 H (204.0-354.0) mg/dL Ferritin 5.7 L (10.0-291.0) ng/mL Total Bilirubin 0.4 (0.2-1.3) mg/dL AST 27 (14-36) U/L ALT 16 (4-34) U/L Alkaline Phosphatase 36 L (38-126) U/L Total Protein 8.2 (6.3-8.2) g/dL Albumin 4.7 (3.5-5.0) g/dL Blood Type Blood Type Recheck Bld Type Recheck Status Antibody Screen Crossmatch Spec Expiration Date Disposition Is patient prescribed a controlled substance at d/c from ED?: No Time of Disposition: 18:25 <Kanchan Bello - Last Filed: 03/09/24 18:25> <Uzma Short - Last Filed: 03/10/24 15:38> Clinical Impression: Microcytic anemia Disposition: HOME SELF-CARE Condition: Stable Instructions (If sedation given, give patient instructions): Anemia (ED) Additional Instructions: Follow-up with Dr. Irizarry in 1 to 2 days. Please return to the Emergency Department if symptoms worsen or any other concerns. Referrals: Robert Irizarry MD [Primary Care Provider] - 1-2 days
[2024-03-09 12:15] LABS: Anisocytosis Slight; HCT 23.2 % (34.0-46.0); Hypochromasia Marked; MCH 17.1 pg (25.0-35.0); MCHC 28.2 g/dL (31.0-37.0); MCV 60.6 fL (80.0-100.0); Mean Platelet Volume 6.5; Microcytosis Marked; Platelet Count 371 k/uL (150-450); Poikilocytosis Slight; RBC 3.83 m/uL (3.80-5.40); RDW 19.1 % (11.5-15.5); WBC 6.7 k/uL (3.8-10.6)
[2024-03-09 12:26] LABS: ALT 16 U/L (4-34); AST 27 U/L (14-36); African American GFR (CKD) 73 (>60 ml/min/1.73 sqM); Albumin 4.7 g/dL (3.5-5.0); Alkaline Phosphatase 36 U/L (38-126); Anion Gap 11 mmol/L; Blood Urea Nitrogen 31 mg/dL (7-17); Calcium 9.9 mg/dL (8.4-10.2); Carbon Dioxide 24 mmol/L (22-30); Chloride 104 mmol/L (98-107); Glucose 89 mg/dL (74-99); Non-African American GFR(CKD) 63 (>60 ml/min/1.73 sqM); Potassium 4.9 mmol/L (3.5-5.1); Sodium 139 mmol/L (137-145); Total Bilirubin 0.4 mg/dL (0.2-1.3); Total Protein 8.2 g/dL (6.3-8.2)
[2024-03-09 12:33] LABS: HGB 6.6 gm/dL (11.4-16.0)
[2024-03-09 12:35] LABS: INR 0.9 (<1.2); Prothrombin Time 10.5 sec (10.0-12.5)
[2024-03-09 12:53] LABS: Partial Thromboplastin Time 19.4 sec (22.0-30.0)
[2024-03-09 13:02] LABS: Basophils # (M) 0.07 k/uL (0-0.2); Eosinophils # (M) 0.27 k/uL (0-0.7); Lymphocytes # (M) 1.21 k/uL (1.0-4.8); Monocytes # (M) 0.87 k/uL (0-1.0); Neutrophils # (M) 4.29 k/uL (1.3-7.7); Neutrophils % (M) 64 %; Nucleated Red Blood Cells 0 /100 WBC (0-0); Total Cells Counted 100
[2024-03-09 13:04] LABS: Anisocytosis (M) Present; Hypersegmented Neutrophils Present; Poikilocytosis (M) Present; RBC Fragments Present
--- NOTE | 2024-03-09 14:26 | CT ---
EXAMINATION TYPE: CT brain wo con DATE OF EXAM: 03/09/2024 2:08 PM COMPARISON: 11/11/2023. CLINICAL INDICATION: Female, 58 years old with history of headache, hx brain aneurysm, Headache, hx b rain aneurysm TECHNIQUE: Brain: Axial CT images of the brain were obtained with coronal and sagittal reformats created and rev iewed. Contrast used: None. Oral contrast used: None. CT DLP: 1131.4 mGycm, Automated exposure control for dose reduction was used. FINDINGS: Extra-axial spaces: No abnormal extra-axial fluid collections. Ventricular system: Ventriculostomy tubing tip terminating near midline in the right lateral ventricl e. Tubing appears intact. No evidence of hydrocephalus aneurysm clips noted anteriorly. Cerebral parenchyma: Encephalomalacia of the left DEANNA territory in the frontal lobe and right medial frontal lobe. No acute intraparenchymal hemorrhage or mass effect. The lay-white junction is well d ifferentiated. No abnormal enhancement is seen after the administration of intravenous contrast. Cerebellum: Unremarkable. Mass effect: No evidence of midline shift. Intracranial vasculature: unremarkable Soft tissues: Normal. Calvarium/osseous structures: No depressed skull fracture. Postsurgical changes in the skull. Paranasal sinuses and mastoid air cells: Mucosal opacification of the left maxillary sinus. Visualized orbits: Orbital contents are intact. 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 Is not well appreciated given lack of contrast. Treatment changes to the right middle cranial fossa from prior aneurysm. IMPRESSION: 1. Prior Basilar tip aneurysm measuring 5 x 4 not appreciated on this noncontrast exam. 2. Right middle cranial fossa aneurysm clips without evidence of right MCA aneurysm. Left ventriculo stomy tubing appears evidence stable position. 3. 2010 encephalomalacia of the left frontal lobe and DEANNA territory and right frontal lobe near the cingulate gyrus. 4. No acute intracranial process. 5. Moderate left maxillary sinus paranasal sinus disease. [facility], , 03/09/2024 2:23 PM
[2024-03-09 16:32] VITALS: TEMP 98.5
[2024-03-09 18:25] VITALS: RESP 18
[2024-03-09 19:00] VITALS: BP 110/84; PULSE 80
[2024-03-09 20:07] LABS: % Iron Saturation 1.56 (12.00-45.00); Ferritin 5.7 ng/mL (10.0-291.0)
== END 2024-03-09 19:00 | disposition home or self-care (01) ==
LOC: EC 11:22
DX: D50.9 Iron deficiency anemia, unspecified (principal); Z87.891 Personal history of nicotine dependence; Z88.6 Allergy status to analgesic agent; Z88.8 Allergy status to other drugs, medicaments and biological substances
CPT/HCPCS: 99284; 36430; 36415; 86900; 86901; 80053; 82728; 83540; 83550; 85025; 85610; 85730; 86850; 86920; 70450; P9016

== ENCOUNTER → 2024-04-13 | Outpatient (CLI) | payer MEDICARE, OTHER ==
--- NOTE | 2024-04-13 11:56 | US ---
EXAMINATION TYPE: US kidneys/renal and bladder DATE OF EXAM: 04/13/2024 COMPARISON: CT abdomen and pelvis 2017 CLINICAL INDICATION: Female, 59 years old with history of N13.30 UNSPECIFIED HYDRONEPHROSIS; frequent urination hydronephrosis TECHNIQUE: Grayscale imaging of the bilateral kidneys and urinary bladder: FINDINGS: EXAM MEASUREMENTS: Right Kidney: 11.3 x 3.5 x 3.1 cm Left Kidney: 9.4 x 4.5 x 4.2 cm Right Kidney: No hydronephrosis or masses seen Left Kidney: Multiple cystic areas seen 3 cm largest with hydronephrosis. Bladder: anechoic Bilateral Jets seen: No right only. No nephrolithiasis is seen. No masses are identified. The urinary bladder is anechoic. IMPRESSION: Moderate to severe left-sided hydronephrosis is present. [facility], , 04/13/2024 11:53 AM
== END | disposition home or self-care (01) ==
LOC: RADUSWWP 10:31
PROVIDERS: ATTEND Family Medicine
DX: N13.30 Unspecified hydronephrosis (principal)
CPT/HCPCS: 76770

== ENCOUNTER 2024-06-07 06:42 | Day surgery (SDC) | payer MEDICARE, OTHER ==
[2024-06-01 13:00] VITALS: BMI 22.8
[~2024-06-07 06:42] MED LIST changes: -ACETAMINOPHEN TAB 500 MG TAB PO PRN; -BUPIVACAIN-EPI 0.25%-1:200,000 30 ML VIAL SQ ONE; -DEXAMETHASONE SOD PHOSPHATE 4 MG/ML 1 ML VIAL IV ONE; -GELATIN SPONGE,ABSORB (LARGE) 1 EACH SPONGE TOPICAL ONE; -HEPARIN SODIUM,PORCINE/PF 5,000 UNIT/0.5 ML SYRINGE SQ PRN; -HYDROmorphone 0.5 MG/0.5 ML SYRINGE IVP PRN; -LACTATED RINGERS 1,000 ML IV SCH; +LIDOCAINE 1% (10MG/ML) FOR IV START INTRADERMA PRN; -LIDOCAINE 1% INJ 10MG/ML (20 ML MDV) ONE; -MIDAZOLAM 2 MG/2 ML VIAL ONE; -ONDANSETRON 4 MG/2 ML VIAL IVP ONE; -PROPOFOL 10 MG/ML 20 ML VIAL IV ONE; -Pre Op ABX Message 1 EACH MISC MISCELLANE ONE; -SUCCINYLCHOLINE CHLORIDE 100 MG/5 ML SYR IV ONE; -fentaNYL (PF) 50 MCG/ML 2 ML AMP ONE
[2024-06-07] MEDS ORDERED: ONDANSETRON 4 MG/2 ML VIAL IVP PRN (07:00)
[2024-06-07] MEDS: IV FLUID CONTINUATION 1,000 ML IV ONE (07:07)
[2024-06-07 07:12] VITALS: RESP 16; TEMP 97
[2024-06-07] MEDS: LACTATED RINGERS 1,000 ML IV SCH (07:31)
[2024-06-07] MEDS ORDERED: LIDOCAINE 2% (PF) 20 MG/ML 5 ML VIAL ONE (07:39)
[2024-06-07] MEDS ORDERED: PROPOFOL 10 MG/ML 20 ML VIAL IV ONE (07:39)
--- NOTE | 2024-06-07 08:03 | P.PCN ---
Date of Procedure: 06/07/24 Procedure(s) Performed: Brief history: Patient is a pleasant 59-year-old white female scheduled for an elective upper endoscopy as well as colonoscopy as a part of evaluation of iron deficiency anemia. Procedure performed: Esophagogastroduodenoscopy with biopsy Colonoscopy with biopsy Preoperative diagnosis: Iron deficiency anemia [place]est[place]: [facility] [place] Procedure: After informed consent was obtained from the patient was brought into the endoscopy unit and IV sedation was administered by anesthesia under continuous monitoring. Initially upper endoscopy was done. The Olympus GF 160 video endoscope was inserted inserted into the mouth and esophagus intubated without any difficulty and was gradually advanced into the stomach and duodenum and carefully examined. The bulb and second part of the duodenum appeared normal. The scope was then withdrawn into the stomach adequately insufflated with air a nd upon careful examination the antrum had mild gastritis and biopsies were done from this area. Mucosa d body, cardia and fundus appeared normal. The scope was then withdrawn into the esophagus. Small hiatal hernia noted. The GE junction was located at 40 cm to the incisors. It appeared regular with no erythema erosions or ulcerations. Rest of the esophagus appeared normal. Patient tolerated the procedure well. At this time the patient continued to remain sedation. Initial digital rectal examination was normal. Olympus CF 160 video colonoscope was then inserted into the rectum and gradually advanced to the cecum without any difficulty. Careful examination was performed as the scope was gradually being withdrawn. The prep was excellent. The cecum, ascending colon, transverse colon, descending colon, appeared normal. The distal sigmoid colon there was a 5 mm polyp that was removed by cold biopsy. Scattered sigmoid diverticulosis. The rest of the sigmoid colon and rectum appeared normal. Retroflexion was performed in the rectum and no lesions were noted. Patient tolerated the procedure well. Impression: 1. Upper endoscopy revealed mild gastritis and small hiatal hernia 2. Colonoscopy revealed a 5 mm distal sigmoid colon polyp status post cold biopsy and scattered sigmoid diverticulosis. Recommendations: Findings of this examination were discussed with the patient as well as her family. She was advised to follow-up with the biopsy results. If the biopsy reveals adenoma she can have repeat colonoscopy in 5 years.
[2024-06-07 08:26] VITALS: BP 130/79; PULSE 60
== END 2024-06-07 09:00 | disposition home or self-care (01) ==
LOC: ORWHC2ENDO 06:42
PROVIDERS: ATTEND Internal Medicine Gastroenterology
DX: K31.9 Disease of stomach and duodenum, unspecified (principal); D12.5 Benign neoplasm of sigmoid colon; K29.70 Gastritis, unspecified, without bleeding; K44.9 Diaphragmatic hernia without obstruction or gangrene; K57.30 Diverticulosis of large intestine without perforation or abscess without bleeding; D50.9 Iron deficiency anemia, unspecified
CPT/HCPCS: 45380; 43239; J2704; J2003; 88305

== ENCOUNTER → 2024-06-14 | Outpatient (CLI) | payer MEDICARE, OTHER ==
--- NOTE | 2024-06-14 14:56 | CT ---
EXAMINATION TYPE: CT abdomen pelvis wo con DATE OF EXAM: 06/14/2024 COMPARISON: 01/20/2017 CLINICAL INDICATION: Female, 59 years old with history of N13.30 UNSPECIFIED HYDRONEPHROSIS; PHH, Lef t flank pain TECHNIQUE: CT scan of the abdomen and pelvis is performed without oral or IV contrast. CT DLP: [address] CTDI: mGy Automated exposure control for dose reduction was used. FINDINGS: Within the limitations of a non-contrast study, the following observations are made. The lungs are clear. Gallbladder is normal and there is no gallstone, wall thickening, pericholecystic fluid or distention . There is no biliary ductal dilatation. There is no organomegaly of the liver, pancreas, spleen or adrenal glands. There is marked left renal atrophy with marked left hydronephrosis and hydroureter. There is no right renal calcification or hydronephrosis. The caliber of the abdominal aorta is normal and there is no retroperitoneal adenopathy or hemorrhage . The bowel loops are normal in caliber is no evidence of obstruction. No inflammatory changes are iden tified in the mesentery. There is no pelvic mass, free fluid, abscess or adenopathy. There is a peritoneal dialysis catheter entering the right abdomen terminating in the midline upper pelvis. There is no free air or free fluid. The osseous structures and soft tissues are unremarkable. IMPRESSION: Marked left renal atrophy and marked left hydronephrosis and hydroureter. Unremarkable right kidney. There are no renal calcifications. [facility], Workstation: JOSE LUIS, 06/14/2024 2:54 PM
== END | disposition home or self-care (01) ==
LOC: RADCTMAIN 14:05
PROVIDERS: ATTEND Urology
DX: N13.30 Unspecified hydronephrosis (principal); N26.1 Atrophy of kidney (terminal); N13.4 Hydroureter
CPT/HCPCS: 74176

== ENCOUNTER → 2024-07-08 | Outpatient (CLI) | payer MEDICARE, OTHER ==
--- NOTE | 2024-07-08 11:52 | MM ---
Reason for Exam: Screening (asymptomatic). Last mammogram was performed 4 year(s) and 2 month(s) ago. Patient History: Menarche at age 10. First Full-Term at age 22. Postmenopausal. Mother had breast cancer, age 50. Risk Values: Zora 5 year model risk: 3.0%. NCI Lifetime model risk: 14.8%. Prior Study Comparison: 07/11/2014 Bilateral Screening Mammogram, [facility]. 06/19/2015 Bilateral Diagnostic Mammogram, [facility]. 09/15/2017 Bilateral Diagnostic Mammogram, [facility]. 05/15/2020 Bilateral Screening Mammogram, [facility]. Tissue Density: The breasts are heterogeneously dense, which may obscure small masses. Findings: Analyzed By CAD. Right breast: There is no suspicious group of microcalcifications or new suspicious mass. Benign-appearing calcifications right breast. Left breast: There is no suspicious group of microcalcifications or new suspicious mass. Benign-appearing calcifications left breast. Overall Assessment: Benign, BI-RAD 2 Management: Screening Mammogram of both breasts in [address] [facility] will attempt to contact patient to return for supplemental views and ultrasound if indicated. Patient should continue monthly self-breast exams. A clinical breast exam by your physician is recommended on an annual basis. This exam should not preclude additional follow-up of suspicious palpable abnormalities. Note on Zora scores and lifetime risk: 1. A Zora score greater than 3% is considered moderate risk. If this is the case, consider specialist referral to assess eligibility for a risk reducing agent. 2. If overall lifetime risk for the development of breast cancer is 20% or higher, the patient may qualify for future screening with alternating mammogram and breast MRI. [facility], , 07/08/2024 11:50 AM. Electronically signed and approved by: Jeremy Tobar DO
== END | disposition home or self-care (01) ==
LOC: RADMAMWWP 10:57
PROVIDERS: ATTEND Family Medicine
DX: Z12.31 Encounter for screening mammogram for malignant neoplasm of breast (principal); R92.333 Mammographic heterogeneous density, bilateral breasts; R92.1 Mammographic calcification found on diagnostic imaging of breast; Z78.0 Asymptomatic menopausal state; Z80.3 Family history of malignant neoplasm of breast
CPT/HCPCS: 77063; 77067

== ENCOUNTER 2024-08-09 12:41 | Observation (INO) | payer MEDICARE, OTHER ==
--- NOTE | 2024-08-09 13:18 | ED ---
Altered Mental Status HPI - General Source: patient, RN notes reviewed Mode of arrival: ambulatory Limitations: no limitations <Inessa Sarmiento - Last Filed: 08/09/24 13:17> <Reggie Merida - Last Filed: 08/09/24 18:31> - General Chief Complaint: Altered Mental Status Stated Complaint: Low blood pressure Time Seen by Provider: 08/09/24 13:17 - History of Present Illness Initial Comments: Quick note: 59-year-old female presented to the ER for evaluation of altered mental status. Patient sent by home care nurse for concern of CVA or UTI. Per family, patient was hypotensive and intermittently confused this morning. They report this has improved throughout the day. (Inessa Sarmiento) Dictation was produced using [employer] dictation software. please excuse any grammatical, word or spelling errors. Chief Complaint: 59-year-old female with altered mental status weakness History of Present Illness: 59-year-old female with history of brain aneurysm, ventricular shunt presents to the ER with for weakness. Patient has been having excessive somnolence since this morning. states that she is so weak that she is having difficulties holding up her arms. Patient is nonambulatory. Last night reports that patient was in her baseline health. also states that patient is confused.Patient states that at the bedside she feels well sleepy The ROS documented in this emergency department record has been reviewed and confirmed by me. Those systems with pertinent positive or negative responses have been documented in the HPI. All other systems are other negative and/or noncontributory. (Reggie Merida) - Related Data Home Medications Medication Instructions Recorded Confirmed Levothyroxine Sodium [Synthroid] 50 mcg PO DAILY 12/19/13 08/09/24 Omeprazole [PriLOSEC] 40 mg PO BID 12/19/13 08/09/24 Fenofibrate 160 mg PO DAILY 01/13/17 08/09/24 Atorvastatin [Lipitor] 20 mg PO HS 03/21/22 08/09/24 DULoxetine HCL [Cymbalta] 30 mg PO DAILY 03/09/24 08/09/24 FLUoxetine HCL [PROzac] 40 mg PO DAILY 03/09/24 08/09/24 HYDROcodone/APAP 7.5-325MG [Alpine 1 tab PO TID PRN 03/09/24 08/09/24 7.5-325] traZODone HCL 150 mg PO HS 03/09/24 08/09/24 Tolterodine ER [Detrol LA] 4 mg PO HS 06/01/24 08/09/24 Mirabegron [Myrbetriq] 25 mg PO DAILY 07/13/24 08/09/24 Pregabalin [Lyrica] 75 mg PO BID 07/13/24 08/09/24 levETIRAcetam [Keppra] 750 mg PO BID 07/13/24 08/09/24 Amitriptyline HCl [Elavil] 50 mg PO HS 08/09/24 08/09/24 Baclofen [Lioresal] 10 mg PO HS 08/09/24 08/09/24 Bisoprolol-Hctz 5-6.25 mg [Ziac 1 tab PO HS 08/09/24 08/09/24 5-6.25 MG] Midodrine HCl 10 mg PO BID 08/09/24 08/09/24 amLODIPine BESYLATE/BENAZEPRIL 1 cap PO DAILY 08/09/24 08/09/24 [Lotrel 5-10 mg Capsule] Allergies Allergy/AdvReac Type Severity Reaction Status Date / Time adhesive tape Allergy Unknown Rash/Hives Verified 08/09/24 18:01 ibuprofen [From Motrin] AdvReac STOMACH Verified 08/09/24 18:01 PAIN Review of Systems ROS Other: All systems not noted in ROS Statement are negative. <Inessa Sarmiento - Last Filed: 08/09/24 13:17> ROS Other: All systems not noted in ROS Statement are negative. <Reggie Merida - Last Filed: 08/09/24 18:31> ROS Statement: Those systems with pertinent positive or pertinent negative responses have been documented in the HPI. Past Medical History Past Medical History: CVA/TIA, Fibromyalgia, GERD/Reflux, Hyperlipidemia, Memory Impairment, Osteoarthritis (OA), Thyroid Disorder Additional Past Medical History / Comment(s): Current brain aneurysm, has shunt in head to stomach. Multiple brain aneurysms, last in 2007, affected memory and coordination, has problems with balance. Chronic knee pain and headaches,few CVAs- rt sided weakness-rolled ankle and now has stiffness-uses w/c stands to pivot transfers with assistance. redness under skin folds History of Any Multi-Drug Resistant Organisms: None Reported Past Surgical History: Joint Replacement, Tubal Ligation Additional Past Surgical History / Comment(s): Brain surgery to repair aneurysms, shunt placed, bilateral total knee replacements. Past Anesthesia/Blood Transfusion Reactions: No Reported Reaction Additional Past Anesthesia/Blood Transfusion Reaction / Comment(s): no hx blood transfusion reactions Past Psychological History: Anxiety, Depression Smoking Status: Former smoker - Past Family History Father Family Medical History: AFIB, Myocardial Infarction (AK) Mother Family Medical History: Cancer Additional Family Medical History / Comment(s): Breast Cancer. <Inessa Sarmiento - Last Filed: 08/09/24 13:17> General Exam Limitations: no limitations <Inessa Sarmiento - Last Filed: 08/09/24 13:17> <Reggie Merida - Last Filed: 08/09/24 18:31> - General Exam Comments Initial Comments: Visual Physical Exam Vital signs reviewed General: No signs of acute distress. Strong urine odor. Patient initially not wearing pants. Head: Normocephalic, atraumatic Eyes: PERRLA, EOMI ENT: Airway patent Chest: Nonlabored breathing Skin: No visual rash, normal skin tone Neuro: Alert and oriented 3 NIH 0 Musculoskeletal: No gross abnormalities (Inessa Sarmiento) PHYSICAL EXAM: General Impression: Alert and oriented x3, excessive somnolence but arousable, cachectic lower extremities HEENT: Normocephalic atraumatic, extra-ocular movements intact, pupils equal and reactive to light bilaterally, mucous membranes moist. Cardiovascular: Heart regular rate and rhythm Chest: Able to complete full sentences, no retractions, no tachypnea Abdomen: abdomen soft, non-tender, non-distended, no organomegaly Musculoskeletal: Pulses present and equal in all extremities, no peripheral edema Motor: no focal deficits noted Neurological: CN II-XII grossly intact, no focal motor or sensory deficits noted Skin: Intact with no visualized rashes Psych: Normal affect and mood (Reggie Merida) Course Vital Signs 08/09/24 08/09/24 13:02 16:13 Temperature 98.7 F Pulse Rate 53 L 49 L Respiratory 22 16 Rate Blood Pressure 91/58 93/63 O2 Sat by Pulse 95 96 Oximetry Medical Decision Making <Inessa Sarmiento - Last Filed: 08/09/24 13:17> - Lab Data Result diagrams: 08/09/24 14:18 08/09/24 15:20 <Reggie Merida - Last Filed: 08/09/24 18:31> - Medical Decision Making I performed the quick note portion of this chart. Electronically signed by Inessa Sarmiento PA-C (Inessa Sarmiento) Was pt. sent in by a medical professional or institution ([facility], PASSPORT SUPPORT [employer]OCIATE, urgent care, hospital, or alf...) When possible be specific @ -No Did you speak to anyone other than the patient for history (EMS, parent, family, police, friend...)? What history was obtained from this source @ -See above Did you review nursing and triage notes (agree or disagree)? Why? @ -I reviewed and agree with nursing and triage notes Were old charts reviewed (outside hosp., previous admission, EMS record, old EKG, old radiological studies, urgent care reports/EKG's, alf records)? Report findings @ -No old charts were reviewed Differential Diagnosis (chest pain, altered mental status, abdominal pain women, abdominal pain men, vaginal bleeding, musculoskeletal, weakness, fever, dyspnea, syncope, headache, dizziness, GI bleed, back pain, seizure, CVA, palpatations, mental health)? @ -Differential Weakness: Hypoglycemia, shock, sepsis, hyponatremia, anemia, infection, AK, ETOH, adverse medicine reaction, overdose, stroke, this is not meant to be an all-inclusive list. EKG interpreted by me (3pts min.). @ X-rays interpreted by me (1pt min.). @ -Chest x-ray shows no acute processes CT interpreted by me (1pt min.). @ -CT brain shows no acute processes. Incidental finding of sinusitis U/S interpreted by me (1pt. min.). @ -None done What testing was considered but not performed or refused? (CT, X-rays, U/S, labs)? Why? @ -None What meds were considered but not given or refused? Why? @ -None Was smoking cessation discussed for >3mins.? @ -No Were there social determinants of health that impacted care today? How? (Homelessness, low income, unemployed, alcoholism, drug addiction, transportation, low edu. Level, literacy, decrease access to med. care, [facility], rehab)? @ -No Was there de-escalation of care discussed even if they declined (Discuss DNR or withdrawal of care, Hospice)? DNR status @ -No What co-morbidities impacted this encounter? (DM, HTN, Smoking, COPD, CAD, Cancer, CVA, ARF, Chemo, Hep., AIDS, mental health diagnosis, sleep apnea, morbid obesity)? @ -History of debility Was patient admitted / discharged? Hospital course, mention meds given and route, prescriptions, significant lab abnormalities, going to OR and other pe rtinent info. @ -5-year-old female brought into the emergency department for acute weakness. Patient has extensive medical history including brain aneurysms, stroke with debility. Vital signs upon arrival shows bradycardia with soft blood pressure 91/58. states that this is near her baseline. Patient excessively somnolent at the bedside. Laboratory evaluation obtained. Potassium is 5.7 pending recheck. Laboratory evaluation is otherwise unremarkable. Pending urinalysis. Kidney function appears to be around patient's baseline. Patient given her debility and acute change in medical status will be admitted to observation. Case discussed with hospitalist for admission. Imaging studies are negative for any threatening processes except for incidental finding of sinusitis. Patient started on oral antibiotics. Did you discuss the management of the patient with other professionals (professionals i.e. , PA, PASSPORT SUPPORT ASSOCIATE, lab, RT, psych nurse, clinical social worker, business and services instructor, teacher, [employer] revenue officer, assistant case manager)? Give summary @ -Case discussed with hospitalist for admission Was critical care preformed (if so, how long)? @ -No Undiagnosed new problem with uncertain prognosis? @ -No Drug Therapy requiring intensive monitoring for toxicity (Heparin, Nitro, Insulin, Cardizem)? @ -No Were any procedures done? @ -No Diagnosis/symptom? Acute, or Chronic, or Acute on Chronic? Uncomplicated (without systemic symptoms) or Complicated (systemic symptoms)? @ -Generalized weakness Side effects of treatment? @ -No Exacerbation, Progression, or Severe Exacerbation? @ -No Poses a threat to life or bodily function? How? (Chest pain, USA, AK, pneumonia, PE, COPD, DKA, ARF, appy, cholecystitis, CVA, Diverticulitis, Homicidal, Suicidal, threat to staff... and all critical care pts) @ -yes (Reggie Merida) - Lab Data Lab Results 08/09/24 08/09/24 08/09/24 Range/Units 14:18 14:18 14:18 WBC 13.96 H (4.50-10.00) 10*3/uL RBC 4.37 (4.10-5.20) 10*6/uL Hgb 10.4 L (12.0-15.0) g/dL Hct 34.1 L (37.2-46.3) % MCV 78.0 L (80.0-97.0) fL MCH 23.8 L (27.0-32.0) pg MCHC 30.5 L (32.0-37.0) g/dL Plt Count 440 (140-440) 10*3/uL MPV 10.1 (9.5-12.2) fL Immature Gran % (Auto) 0.4 % Neutrophils % 79.0 % Lymphocytes % 13.5 % Monocytes % 5.4 % Eosinophils % 1.1 % Basophils % 0.6 % Immature Gran # 0.06 H (0.00-0.04) 10*3/uL Neutrophils # 11.01 H (1.80-7.70) 10*3/uL Lymphocytes # 1.89 (0.90-5.00) 10*3/uL Monocytes # 0.76 (0.20-1.00) 10*3/uL Eosinophils # 0.15 (0.04-0.35) 10*3/uL Basophils # 0.09 (0.00-0.10) 10*3/uL PT 10.8 (10.0-12.5) sec INR 1.0 (<1.2) APTT 21.1 L (22.0-30.0) sec Sodium (137-145) mmol/L Potassium (3.5-5.1) mmol/L Chloride (98-107) mmol/L Carbon Dioxide (22-30) mmol/L Anion Gap mmol/L BUN (7-17) mg/dL Creatinine (0.52-1.04) mg/dL Est GFR (CKD-EPI)AfAm (>60 ml/min/1.73 sqM) Est GFR (CKD-EPI)NonAf (>60 ml/min/1.73 sqM) Glucose (74-99) mg/dL Calcium (8.4-10.2) mg/dL Total Bilirubin (0.2-1.3) mg/dL AST (14-36) U/L ALT (4-34) U/L Alkaline Phosphatase (38-126) U/L Ammonia 17 (<30) umol/L Troponin I (0.000-0.034) ng/mL Total Protein (6.3-8.2) g/dL Albumin (3.5-5.0) g/dL 08/09/24 08/09/24 Range/Units 15:20 15:20 WBC (4.50-10.00) 10*3/uL RBC (4.10-5.20) 10*6/uL Hgb (12.0-15.0) g/dL Hct (37.2-46.3) % MCV (80.0-97.0) fL MCH (27.0-32.0) pg MCHC (32.0-37.0) g/dL Plt Count (140-440) 10*3/uL MPV (9.5-12.2) fL Immature Gran % (Auto) % Neutrophils % % Lymphocytes % % Monocytes % % Eosinophils % % Basophils % % Immature Gran # (0.00-0.04) 10*3/uL Neutrophils # (1.80-7.70) 10*3/uL Lymphocytes # (0.90-5.00) 10*3/uL Monocytes # (0.20-1.00) 10*3/uL Eosinophils # (0.04-0.35) 10*3/uL Basophils # (0.00-0.10) 10*3/uL PT (10.0-12.5) sec INR (<1.2) APTT (22.0-30.0) sec Sodium 140 (137-145) mmol/L Potassium 5.7 H (3.5-5.1) mmol/L Chloride 106 (98-107) mmol/L Carbon Dioxide 24 (22-30) mmol/L Anion Gap 10 mmol/L BUN 49 H (7-17) mg/dL Creatinine 1.94 H (0.52-1.04) mg/dL Est GFR (CKD-EPI)AfAm 32 (>60 ml/min/1.73 sqM) Est GFR (CKD-EPI)NonAf 28 (>60 ml/min/1.73 sqM) Glucose 94 (74-99) mg/dL Calcium 10.2 (8.4-10.2) mg/dL Total Bilirubin 0.4 (0.2-1.3) mg/dL AST 22 (14-36) U/L ALT 12 (4-34) U/L Alkaline Phosphatase 42 (38-126) U/L Ammonia (<30) umol/L Troponin I <0.012 (0.000-0.034) ng/mL Total Protein 7.9 (6.3-8.2) g/dL Albumin 4.5 (3.5-5.0) g/dL Disposition <Inessa Sarmiento - Last Filed: 08/09/24 13:17> Decision Time: 18:31 <Reggie Merida - Last Filed: 08/09/24 18:31> Clinical Impression: Weakness Disposition: ADMITTED IP TO THIS HOSP Condition: Fair Referrals: Robert Irizarry MD [Primary Care Provider] - 1-2 days
[2024-08-09 14:33] LABS: Basophils # (A) 0.09 10*3/uL (0.00-0.10); Basophils % (A) 0.6 %; Eosinophils # (A) 0.15 10*3/uL (0.04-0.35); Eosinophils % (A) 1.1 %; HCT 34.1 % (37.2-46.3); HGB 10.4 g/dL (12.0-15.0); Lymphocytes # (A) 1.89 10*3/uL (0.90-5.00); Lymphocytes % (A) 13.5 %; MCH 23.8 pg (27.0-32.0); MCHC 30.5 g/dL (32.0-37.0); MCV 78.0 fL (80.0-97.0); Monocytes # (A) 0.76 10*3/uL (0.20-1.00); Monocytes % (A) 5.4 %; Neutrophils # (A) 11.01 10*3/uL (1.80-7.70); Neutrophils % (A) 79.0 %; Platelet Count 440 10*3/uL (140-440); RBC 4.37 10*6/uL (4.10-5.20); RDW 21.8 % (11.5-14.5); WBC 13.96 10*3/uL (4.50-10.00)
[2024-08-09 15:09] LABS: INR 1.0 (<1.2); Prothrombin Time 10.8 sec (10.0-12.5)
[2024-08-09 15:13] LABS: Partial Thromboplastin Time 21.1 sec (22.0-30.0)
--- NOTE | 2024-08-09 15:41 | XR ---
EXAMINATION TYPE: XR chest 2V DATE OF EXAM: 08/09/2024 3:34 PM COMPARISON: None. CLINICAL INDICATION: Female, 59 years old with history of altered mental status, TECHNIQUE: XR chest 2V view(s) obtained. FINDINGS: The heart size is normal. The pulmonary vasculature is normal. The lungs are clear. Catheter overlies the anterior mid chest region. IMPRESSION: 1. No acute pulmonary process. [facility], , 08/09/2024 3:39 PM
[2024-08-09 15:54] LABS: ALT 12 U/L (4-34); AST 22 U/L (14-36); African American GFR (CKD) 32 (>60 ml/min/1.73 sqM); Albumin 4.5 g/dL (3.5-5.0); Alkaline Phosphatase 42 U/L (38-126); Anion Gap 10 mmol/L; Blood Urea Nitrogen 49 mg/dL (7-17); Calcium 10.2 mg/dL (8.4-10.2); Carbon Dioxide 24 mmol/L (22-30); Chloride 106 mmol/L (98-107); Glucose 94 mg/dL (74-99); Non-African American GFR(CKD) 28 (>60 ml/min/1.73 sqM); Potassium 5.7 mmol/L (3.5-5.1); Sodium 140 mmol/L (137-145); Total Protein 7.9 g/dL (6.3-8.2)
[2024-08-09] MEDS: SODIUM CHLORIDE 0.9% 1,500 ML IV STA (16:14)
--- NOTE | 2024-08-09 18:02 | CT ---
EXAMINATION TYPE: CT brain wo con DATE OF EXAM: 08/09/2024 5:44 PM COMPARISON: Prior CT study 03/07/2024. CLINICAL INDICATION: Female, 59 years old with history of ams, TECHNIQUE: Brain: Axial CT images of the brain were obtained with coronal and sagittal reformats created and rev iewed. Contrast used: None. Oral contrast used: None. FINDINGS: Brain: Extra-axial spaces: No abnormal extra-axial fluid collections. Ventricular system: Dilatation in proportion to cerebral atrophy. Redemonstration ventriculostomy cat heter visualized terminating near the posterior horn of the right lateral ventricle. Cerebral parenchyma: Redemonstration of encephalomalacia involving the left DEANNA territory in the fron scott lobe and the medial aspect of the left frontal lobe more superiorly. The lay-white junction is w ell differentiated. Aneurysm clip is again visualized anteriorly. Scattered hypoattenuating areas are seen within the white matter. Cerebellum: Unremarkable. Mass effect: No evidence of midline shift. Intracranial vasculature: Aneurysm clips again noted in the region of the right MCA. Soft tissues: Normal. Calvarium/osseous structures: No depressed skull fracture. Postoperative changes involving the calvar ium. Paranasal sinuses and mastoid air cells: Complete opacification of the left maxillary sinus. Visualized orbits: Orbital contents are intact. IMPRESSION: 1. No acute intracranial process. 2. Complete opacification of the left maxillary sinus. [facility], , 08/09/2024 5:59 PM
[2024-08-09] MEDS ORDERED: NALOXONE 0.4 MG/ML 1 ML VIAL IV PRN (18:25)
[2024-08-09] MEDS: SODIUM CHLORIDE 0.9% 1,000 ML IV SCH (18:36)
[2024-08-09 19:02] LABS: Bilirubin,Urine Negative (Negative); Blood,Urine Negative (Negative); Color,Urine Colorless; Glucose,Urine (UA) Negative (Negative); Ketones,Urine Negative (Negative); Leukocyte Esterase,Urine Negative (Negative); Nitrite,Urine Negative (Negative); PH, Urine 6.0 (5.0-8.0); Protein,Urine Negative (Negative); Specific Gravity,Urine 1.008 (1.001-1.035); Urobilinogen,Urine <2.0 mg/dL (<2.0)
[2024-08-09] MEDS: AMOXIC-POT CLAV 875-125MG 1 EACH TAB PO SCH (20:18)
[2024-08-09] MEDS: HYDROmorphone 0.5 MG/0.5 ML SYRINGE IVP PRN (23:44)
--- NOTE | 2024-08-10 02:12 | XR ---
EXAM: XR Abdomen, 1 View CLINICAL HISTORY: ITS.REASON XR Reason: abdominal pain TECHNIQUE: Frontal supine view of the abdomen/pelvis. COMPARISON: No relevant prior studies available. FINDINGS: Gastrointestinal tract: Mild fecal retention, correlate for constipation. No dilation. Bones/joints: Unremarkable. IMPRESSION: Mild fecal retention, correlate for constipation.
--- NOTE | 2024-08-10 08:53 | P.HPIM ---
History of Present Illness H&P Date: 08/10/24 Chief Complaint: Weakness. This is a 59-year-old white female with known history of subarachnoid hemorrhage with hemorrhagic CVA in the remote past history of epilepsy who is homebound and relatively immobile. She was scheduled for ankle contracture repair but had hyper kalemia. The patient is here secondary to weakness. She states she feels as though she has had cerebrovascular accident however she is speaking at her baseline and has no lateral deficit that is new. Review of Systems Constitutional: Denies chills, Denies fever Eyes: denies blurred vision, denies pain Ears, nose, mouth and throat: Denies headache, Denies sore throat Cardiovascular: Denies chest pain, Denies shortness of breath Past Medical History Past Medical History: CVA/TIA, Fibromyalgia, GERD/Reflux, Hyperlipidemia, Memory Impairment, Osteoarthritis (OA), Thyroid Disorder Additional Past Medical History / Comment(s): Current brain aneurysm, has shunt in head to stomach. Multiple brain aneurysms, last in 2007, affected memory and coordination, has problems with balance. Chronic knee pain and headaches,few C VAs- rt sided weakness-rolled ankle and now has stiffness-uses w/c stands to pivot transfers with assistance. redness under skin folds History of Any Multi-Drug Resistant Organisms: None Reported Past Surgical History: Joint Replacement, Tubal Ligation Additional Past Surgical History / Comment(s): Brain surgery to repair a neurysms, shunt placed, bilateral total knee replacements. Past Anesthesia/Blood Transfusion Reactions: No Reported Reaction Additional Past Anesthesia/Blood Transfusion Reaction / Comment(s): no hx blood transfusion reactions Past Psychological History: Anxiety, Depression Smoking Status: Former smoker - Past Family History Father Family Medical History: AFIB, Myocardial Infarction ([place]) Mother Family Medical History: Cancer Additional Family Medical History / Comment(s): Breast Cancer. Medications and Allergies Home Medications Medication Instructions Recorded Confirmed Type Levothyroxine Sodium [Synthroid] 50 mcg PO DAILY 12/19/13 08/09/24 History Omeprazole [PriLOSEC] 40 mg PO BID 12/19/13 08/09/24 History Fenofibrate 160 mg PO DAILY 01/13/17 08/09/24 History Atorvastatin [Lipitor] 20 mg PO HS 03/21/22 08/09/24 History DULoxetine HCL [Cymbalta] 30 mg PO DAILY 03/09/24 08/09/24 History FLUoxetine HCL [PROzac] 40 mg PO DAILY 03/09/24 08/09/24 History HYDROcodone/APAP 7.5-325MG [Palo 1 tab PO TID PRN 03/09/24 08/09/24 History 7.5-325] traZODone HCL 150 mg PO HS 03/09/24 08/09/24 History Tolterodine ER [Detrol LA] 4 mg PO HS 06/01/24 08/09/24 History Mirabegron [Myrbetriq] 25 mg PO DAILY 07/13/24 08/09/24 History Pregabalin [Lyrica] 75 mg PO BID 07/13/24 08/09/24 History levETIRAcetam [Keppra] 750 mg PO BID 07/13/24 08/09/24 History Amitriptyline HCl [Elavil] 50 mg PO HS 08/09/24 08/09/24 History Baclofen [Lioresal] 10 mg PO HS 08/09/24 08/09/24 History Bisoprolol-Hctz 5-6.25 mg [Ziac 1 tab PO HS 08/09/24 08/09/24 History 5-6.25 MG] Midodrine HCl 10 mg PO BID 08/09/24 08/09/24 History amLODIPine BESYLATE/BENAZEPRIL 1 cap PO DAILY 08/09/24 08/09/24 History [Lotrel 5-10 mg Capsule] Allergies Allergy/AdvReac Type Severity Reaction Status Date / Time adhesive tape Allergy Unknown Rash/Hives Verified 08/09/24 18:01 ibuprofen [From Motrin] AdvReac STOMACH Verified 08/09/24 18:01 PAIN Physical Exam Vitals: Vital Signs Temp Pulse Resp BP Pulse Ox 08/10/24 08:09 98.2 F 66 18 149/95 98 08/10/24 07:03 98.0 F 59 L 18 161/98 95 08/10/24 04:00 51 L 16 115/80 97 08/10/24 02:00 55 L 16 127/91 96 08/10/24 01:37 97.5 F L 61 18 132/82 99 08/10/24 00:00 49 L 122/83 08/09/24 23:30 57 L 16 125/77 97 08/09/24 22:30 59 L 105/87 97 08/09/24 20:21 98.2 F 56 L 18 111/73 95 08/09/24 19:41 63 18 112/94 98 08/09/24 18:00 50 L 18 96/66 95 08/09/24 16:13 49 L 16 93/63 96 08/09/24 13:02 98.7 F 53 L 22 91/58 95 Intake and Output 08/09/24 08/10/24 08/10/24 22:59 06:59 14:59 Output Total 75 175 Balance -75 -175 Output: Urine 75 175 Other: # Voids 1 1 - Constitutional General appearance: average body habitus, cooperative, no disheveled, no no acute distress - Neck Neck: lymphadenopathy - Respiratory Respiratory: bilateral: diminished - Cardiovascular Rhythm: regular Heart sounds: normal: S1, S2 Abnormal Heart Sounds: no S3 Gallop - Gastrointestinal General gastrointestinal: soft Results CBC & Chem 7: 08/09/24 14:18 08/09/24 18:52 Labs: Abnormal Lab Results - Last 24 Hours (Table) 08/09/24 08/09/24 08/09/24 Range/Units 14:18 14:18 15:20 WBC 13.96 H (4.50-10.00) 10*3/uL Hgb 10.4 L (12.0-15.0) g/dL Hct 34.1 L (37.2-46.3) % MCV 78.0 L (80.0-97.0) fL MCH 23.8 L (27.0-32.0) pg MCHC 30.5 L (32.0-37.0) g/dL Immature Gran # 0.06 H (0.00-0.04) 10*3/uL Neutrophils # 11.01 H (1.80-7.70) 10*3/uL APTT 21.1 L (22.0-30.0) sec D-Dimer (<0.60) mg/L FEU Potassium 5.7 H (3.5-5.1) mmol/L BUN 49 H (7-17) mg/dL Creatinine 1.94 H (0.52-1.04) mg/dL 08/10/24 Range/Units 00:20 WBC (4.50-10.00) 10*3/uL Hgb (12.0-15.0) g/dL Hct (37.2-46.3) % MCV (80.0-97.0) fL MCH (27.0-32.0) pg MCHC (32.0-37.0) g/dL Immature Gran # (0.00-0.04) 10*3/uL Neutrophils # (1.80-7.70) 10*3/uL APTT (22.0-30.0) sec D-Dimer 0.64 H (<0.60) mg/L FEU Potassium (3.5-5.1) mmol/L BUN (7-17) mg/dL Creatinine (0.52-1.04) mg/dL Assessment and Plan (1) History of hemorrhagic cerebrovascular accident (CVA) with residual deficit Current Visit: Yes Status: Acute Code(s): I69.30 - UNSPECIFIED SEQUELAE OF CEREBRAL INFARCTION SNOMED Code(s): 573372760980321 (2) Epilepsy Current Visit: Yes Status: Acute Code(s): G40.909 - EPILEPSY, UNSP, NOT INTRACTABLE, WITHOUT STATUS EPILEPTICUS SNOMED Code(s): 96229795 (3) Cannabis abuse Current Visit: Yes Status: Acute Code(s): F12.10 - CANNABIS ABUSE, UNCOMPLICATED SNOMED Code(s): 59369609 (4) Opiate dependence, continuous Current Visit: Yes Status: Acute Code(s): F11.20 - OPIOID DEPENDENCE, UNCOMPLICATED SNOMED Code(s): 758515071 (5) Weakness Current Visit: Yes Status: Acute Code(s): R53.1 - WEAKNESS SNOMED Code(s): 59470468 Plan: Suspect the patient would benefit from placement however in the past, they have had difficulty placing her. Withhold any somnolence inducing medication. Will withhold opiates and trazodone temporarily. Check CBC and CMP in AM. PT/OT. Discharge planning for possible placement.
[2024-08-10] MEDS: amLODIPine 5 MG TAB PO SCH (09:45)
[2024-08-10] MEDS: PANTOPRAZOLE 40 MG TABLET PO SCH (09:45)
[2024-08-10] MEDS: MIDODRINE 5 MG TAB PO SCH (09:46)
[2024-08-10] MEDS: NON FORMULARY DRUG (Mirabegron [Myrbetriq] 25 MG Tab.Er.24h) PO SCH (09:46)
[2024-08-10] MEDS: FENOFIBRATE 160 MG TAB PO SCH (09:46)
[2024-08-10] MEDS: MAGNESIUM HYDROXIDE 2,400 MG/30 ML CUP PO PRN (09:52)
[2024-08-10] MEDS: ACETAMINOPHEN TAB 325 MG TAB PO PRN (21:08)
[2024-08-10] MEDS: ATORVASTATIN 20 MG TAB PO SCH (21:09)
[2024-08-10] MEDS: OXYBUTYNIN 10 MG TAB.ER.24 PO SCH (21:09)
[2024-08-10] MEDS: BISOPROLOL-HCTZ 5-6.25 MG 1 EACH TAB PO SCH (21:10)
[2024-08-11] MEDS: LEVOTHYROXINE 50 MCG TAB PO SCH (06:33)
--- NOTE | 2024-08-11 08:48 | P.PN ---
Subjective Progress Note Date: 08/11/24 This is a 59-year-old female who presented to the emergency department with complaints of weakness and hyperkalemia. Patient has a known history of a subarachnoid hemorrhage with hemorrhagic CVA and is homebound and relatively immobile. Patient is scheduled for ankle contracture repair tomorrow morning. Patient's potassium level has improved. She is seen this morning resting comfortably in bed. We will clear her for her surgery tomorrow, and anticipate discharge after her surgery tomorrow. Objective - Vital Signs Vital signs: Vital Signs Temp 97.7 F 08/11/24 02:25 Pulse 69 08/11/24 02:25 Resp 16 08/11/24 02:25 BP 156/90 08/11/24 06:36 Pulse Ox 97 08/11/24 02:25 FiO2 Intake & Output 08/10/24 08/11/24 08/11/24 18:59 06:59 18:59 Intake Total 280 Output Total 1900 550 Balance -1620 -550 Intake: Oral 280 Output: Urine 1900 550 Other: Voiding Method External Catheter # Voids 2 # Bowel Movements 1 2 - Constitutional General appearance: Present: cooperative, no acute distress - EENT Eyes: Present: PERRLA - Neck Neck: Present: normal ROM. Absent: lymphadenopathy, rigidity - Respiratory Respiratory: bilateral: diminished - Cardiovascular Heart sounds: normal: S1, S2 - Gastrointestinal General gastrointestinal: Present: soft. Absent: tenderness - Integumentary Integumentary: Present: normal, normal turgor - Musculoskeletal Musculoskeletal: Present: generalized weakness - Psychiatric Psychiatric: Present: A&O x's 3 - Labs CBC & Chem 7: 08/09/24 14:18 08/09/24 18:52 Assessment and Plan (1) History of hemorrhagic cerebrovascular accident (CVA) with residual deficit Current Visit: Yes Status: Acute Code(s): I69.30 - UNSPECIFIED SEQUELAE OF CEREBRAL INFARCTION SNOMED Code(s): 779316700163119 (2) Weakness Current Visit: Yes Status: Acute Code(s): R53.1 - WEAKNESS SNOMED Code(s): 03392268 (3) Cannabis abuse Current Visit: Yes Status: Acute Code(s): F12.10 - CANNABIS ABUSE, UNCOMPLICATED SNOMED Code(s): 60997516 (4) Epilepsy Current Visit: Yes Status: Acute Code(s): G40.909 - EPILEPSY, UNSP, NOT INTRACTABLE, WITHOUT STATUS EPILEPTICUS SNOMED Code(s): 90364802 (5) Opiate dependence, continuous Current Visit: Yes Status: Acute Code(s): F11.20 - OPIOID DEPENDENCE, UNCOMPLICATED SNOMED Code(s): 138863530 Plan: Check CBC and CMP in the morning. Patient is medically cleared from our standpoint to proceed with surgery tomorrow. Anticipate discharge later tomorrow after her surgery is complete. Patient seen and evaluated by nurse practitioner, physician in agreement with plan.
[2024-08-11] MEDS: HYDROcodone/APAP 7.5-325MG 1 EACH TAB PO PRN (12:28)
--- NOTE | 2024-08-12 08:45 | P.PN ---
Subjective Principal diagnosis: Weakness. The patient is a 59-year-old white female with known history of remote subarachnoid hemorrhage with significant ankle pain. She is scheduled for ankle contracture repair that has been scheduled for the last 2 months. She feels much better and I suspect she is back to her normal baseline unfortunately, she is bedbound. Objective - Vital Signs Vital signs: Vital Signs Temp 98.2 F 08/12/24 00:03 Pulse 80 08/12/24 00:03 Resp 18 08/12/24 00:03 BP 154/82 08/12/24 00:03 Pulse Ox 98 08/12/24 00:03 FiO2 Intake & Output 08/11/24 08/12/24 08/12/24 18:59 06:59 18:59 Intake Total 0 Output Total 150 1000 Balance -150 -1000 Intake: Oral 0 Output: Urine 150 1000 Other: Voiding Method External Catheter External Catheter # Bowel Movements 1 - Constitutional General appearance: Present: average body habitus - EENT Eyes: Absent: abnormal pupil - Neck Neck: Absent: lymphadenopathy - Respiratory Respiratory: bilateral: diminished - Cardiovascular Rhythm: regular Heart sounds: normal: S1, S2 Abnormal Heart Sounds: Absent: S3 Gallop - Gastrointestinal General gastrointestinal: Present: soft. Absent: tenderness - Labs CBC & Chem 7: 08/09/24 14:18 08/09/24 18:52 Assessment and Plan (1) History of hemorrhagic cerebrovascular accident (CVA) with residual deficit Current Visit: Yes Status: Acute Code(s): I69.30 - UNSPECIFIED SEQUELAE OF CEREBRAL INFARCTION SNOMED Code(s): 515943208002864 (2) Epilepsy Current Visit: Yes Status: Acute Code(s): G40.909 - EPILEPSY, UNSP, NOT INTRACTABLE, WITHOUT STATUS EPILEPTICUS SNOMED Code(s): 48247904 (3) Cannabis abuse Current Visit: Yes Status: Acute Code(s): F12.10 - CANNABIS ABUSE, UNCOMPLICATED SNOMED Code(s): 45914258 (4) Opiate dependence, continuous Current Visit: Yes Status: Acute Code(s): F11.20 - OPIOID DEPENDENCE, UNCOMPLICATED SNOMED Code(s): 683205066 (5) Weakness Current Visit: Yes Status: Acute Code(s): R53.1 - WEAKNESS SNOMED Code(s): 90573294 Plan: Suspect the patient would benefit from placement however in the past, they have had difficulty placing her. Withhold any somnolence inducing medication. Will withhold opiates and trazodone temporarily. Check CBC and CMP in AM. PT/OT. Discharge planning for possible placement. Right ankle contracture repair today.
[2024-08-12] MEDS: IV FLUID CONTINUATION 1,000 ML IV ONE (08:52)
[2024-08-12] MEDS: ONDANSETRON 4 MG/2 ML VIAL IVP STA (09:22)
[2024-08-12 10:22] LABS: HCT 33.7 % (37.2-46.3); HGB 10.3 g/dL (12.0-15.0); MCH 23.3 pg (27.0-32.0); MCHC 30.6 g/dL (32.0-37.0); MCV 76.2 FL (80.0-97.0); NRBC Per 100 WBC 0 X 10*3/uL (0.00-0.01); Platelet Count 495 X 10*3/uL (140-440); RBC 4.42 X 10*6/uL (4.10-5.20); RDW 21.8 % (11.5-14.5); WBC 15.59 X 10*3/uL (4.50-10.00)
[2024-08-12] MEDS ORDERED: MIDAZOLAM 2 MG/2 ML VIAL ONE (10:28)
[2024-08-12] MEDS ORDERED: LIDOCAINE 1% INJ 10MG/ML (20 ML MDV) ONE (10:28)
[2024-08-12] MEDS ORDERED: ROCURONIUM 10 MG/ML (5 ML VIAL) IV ONE (10:28)
[2024-08-12] MEDS ORDERED: PROPOFOL 10 MG/ML 20 ML VIAL IV ONE (10:28)
[2024-08-12] MEDS ORDERED: NEOSTIGMINE 1 MG/ML 10 ML VIAL ONE (10:28)
[2024-08-12] MEDS ORDERED: GLYCOPYRROLATE 0.2 MG/ML 2 ML VIAL ONE (10:28)
[2024-08-12] MEDS ORDERED: fentaNYL (PF) 50 MCG/ML 2 ML AMP ONE (10:28)
[2024-08-12] MEDS: ceFAZolin 1,000 MG in SODIUM CHLORIDE 0.9% 1,000 ML IRRIGATION ONE (10:33)
[2024-08-12 10:39] LABS: ALT 16 U/L (8-44); AST 24 U/L (13-35); Albumin 4.4 g/dL (3.8-4.9); Albumin/Globulin Ratio 1.33 Ratio (1.60-3.17); Alkaline Phosphatase 38 U/L (41-126); Anion Gap 14.40 mmol/L (4.00-12.00); BUN/Creat Ratio 18.78 Ratio (12.00-20.00); Blood Urea Nitrogen 16.9 mg/dL (9.0-27.0); Calcium 10.0 mg/dL (8.7-10.3); Carbon Dioxide 20.6 mmol/L (21.6-31.8); Chloride 101 mmol/L (96-109); Globulin 3.3 g/dL (1.6-3.3); Glucose 105 mg/dL (70-110); Potassium 3.9 mmol/L (3.5-5.5); Sodium 136 mmol/L (135-145); Total Protein 7.7 g/dL (6.2-8.2)
--- NOTE | 2024-08-12 11:33 | P.OP ---
Date of Procedure: 08/12/24 Preoperative Diagnosis: Contracture of right ankle joint Postoperative Diagnosis: Same Procedure(s) Performed: Percutaneous tendo Achilles lengthening right ankle Implants: None Anesthesia: EUSEBIO Surgeon: Aristides Shankar Estimated Blood Loss (ml): 1 Pathology: none sent Condition: stable Disposition: PACU Description of Procedure: The patient was brought into the operative room on her bed where timeout was taken to confirm correct patient identifiers, correct laterality of surgery, and correct procedure. Once all staff in the room was in agreement with timeout, the patient was induced and placed under general anesthesia. Then the patient was placed on the operating table in the prone position. There is appropriate padding beneath any bony prominences as well as the thoracic and neck area. When anesthesia was satisfied with positioning, the ankle was assessed for the amount of contracture. Once patients are placed under general anesthesia, occasionally the contractures can relax due to muscle spasm. However it was noted that there was very little relaxation of the ankle joint and it still lied in a plantarflexed position even when fully dorsiflexed. Therefore the decision was made to not perform the gastroc recession first but rather the tendo Achilles lengthening as would be more effective in releasing the contracture. The right leg was then prepped and draped in the usual manner. Attention was directed to the posterior aspect of the ankle over the tendo Achilles area. 3 berg were made on the skin: 1 on the medial aspect of the Achilles tendon approximately 2 cm from the insertion. The second 1 was on the lateral side of the the Achilles tendon approximately 2 cm from the first fiona. The last fiona was made on the medial aspect of the Achilles tendon 2 cm from the middle marked. Small stab incisions were made through the medial berg first. The blades were placed deep to the Achilles tendon then rotated dorsally and approximately one third of the width of the Achilles tendon was transected. Then attention was directed to the lateral fiona where a small stab incision was made, and the blade rotated dorsally. Very slowly the lateral side of the Achilles tendon was transected while holding the ankle dorsiflexed and under tension. As the blade was advanced a palpable release occurred indicating the tendo Achilles lengthening. It was successful in treating the significant equinus deformity of the ankle. With the knee flexed, the ankle was able to be dorsiflexed past 90 degrees. No further procedures were needed to address the contracture. The wounds were irrigated with antibiotic saline. Each incision was closed with 3-0 nylon. Nonadherent gauze and a dry sterile dressing were applied to the right leg. Then the patient was placed in a well-padded, well molded plaster posterior mold/sugar-tong splint. The ankle was held in maximum dorsiflexion as the knee was flexed until the splint was fully dried. Then the patient was rolled back onto the bed in the supine position. Anesthesia was reversed and the patient was taken recovery vital signs stable.
[2024-08-13] MEDS: ZOLPIDEM 5 MG TAB PO PRN (01:24)
--- NOTE | 2024-08-13 14:27 | P.PN ---
Subjective Progress Note Date: 08/13/24 Weakness. The patient is a 59-year-old white female with known history of remote subarachnoid hemorrhage with significant ankle pain. She is scheduled for ankle contracture repair that has been scheduled for the last 2 months. She feels much better and I suspect she is back to her normal baseline unfortunately, she is bedbound. 08/13. Patient seen and examined. Dr. Linares is covering for Dr. Irizarry patient underwent Percutaneous tendo Achilles lengthening right ankle. Stated right foot pain has improved REVIEW OF SYSTEMS: CONSTITUTIONAL: No fever, no malaise,. CARDIOVASCULAR: No chest pain, no palpitations, no syncope. PULMONARY: No shortness of breath, no cough, GASTROINTESTINAL: No diarrhea, no nausea, no vomiting, no abdominal pain. NEUROLOGICAL: No headaches, no weakness, PHYSICAL EXAMINATION: GENERAL: The patient is alert and oriented x3, ill looking HEENT: Pupils are round and equally reacting to light. EOMI. No scleral icterus. No conjunctival pallor. Normocephalic, atraumatic. No pharyngeal erythema. No thyromegaly. CARDIOVASCULAR: S1 and S2 present. No murmurs, rubs, or gallops. PULMONARY: Chest is clear to auscultation, no wheezing or crackles. ABDOMEN: Soft, nontender, nondistended, normoactive bowel sounds. No palpable organomegaly. MUSCULOSKELETAL: right foot cast seen EXTREMITIES: No cyanosis, clubbing, or pedal edema. NEUROLOGICAL: Gross neurological examination did not reveal any focal deficits. SKIN: No rashes. Assessment and plan History of hemorrhagic cerebrovascular accident (CVA) with residual deficit Epilepsy Cannabis abuse Opiate dependence, continuous Weaknes Right ankle pain Hyperkalemia Monitor vital signs Monitor CBC Monitor CMP Continue pain management per orthopedics Continue DVT prophylaxis per orthopedics Continue Synthroid Continue Keppra Aggressive bowel regimen to prevent opioid-induced constipation Resume home meds PT and OT consulted Labs and medication were reviewed.. Continue same treatment. Continue with symptomatic treatment. Resume home medication. Monitor labs and vitals. DVT and GI prophylaxis. Further recommendations as per clinical course of the patient Dictation was produced using [employer] dictation software. please excuse any grammatical, word or spelling errors. Objective - Vital Signs Vital signs: Vital Signs Temp 98.2 F 08/13/24 07:00 Pulse 67 08/13/24 07:00 Resp 18 08/13/24 07:00 BP 152/84 08/13/24 07:00 Pulse Ox 94 L 08/13/24 07:00 FiO2 Intake & Output 08/12/24 08/13/24 08/13/24 18:59 06:59 18:59 Intake Total 551 Output Total 251 600 Balance 300 -600 Weight 56.699 kg Intake: IV 551 Output: Urine 250 600 Straight 400 Estimated Blood Loss 1 Other: # Voids 2 0 # Bowel Movements 1 - Labs CBC & Chem 7: 08/12/24 07:35 08/12/24 07:35 Labs: Abnormal Lab Results - Last 24 Hours (Table) 08/12/24 Range/Units 07:35 Carbon Dioxide 20.6 L (21.6-31.8) mmol/L Anion Gap 14.40 H (4.00-12.00) mmol/L Alkaline Phosphatase 38 L (41-126) U/L Albumin/Globulin Ratio 1.33 L (1.60-3.17) Ratio
[2024-08-14] MEDS ORDERED: ONDANSETRON 4 MG/2 ML VIAL IVP PRN (14:00)
--- NOTE | 2024-08-14 17:18 | P.PN ---
Subjective Progress Note Date: 08/14/24 Weakness. The patient is a 59-year-old white female with known history of remote subarachnoid hemorrhage with significant ankle pain. She is scheduled for ankle contracture repair that has been scheduled for the last 2 months. She feels much better and I suspect she is back to her normal baseline unfortunately, she is bedbound. 08/13. Patient seen and examined. Dr. Linares is covering for Dr. Irizarry patient underwent Percutaneous tendo Achilles lengthening right ankle. Stated right foot pain has improved 08/14. Patient seen and examined. Complaining of nausea this morning. Denies any abdominal pain. Vital signs stable REVIEW OF SYSTEMS: CONSTITUTIONAL: No fever, no malaise,. CARDIOVASCULAR: No chest pain, no palpitations, no syncope. PULMONARY: No shortness of breath, no cough, GASTROINTESTINAL: As mentioned above NEUROLOGICAL: No headaches, no weakness, PHYSICAL EXAMINATION: GENERAL: The patient is alert and oriented x3, ill looking HEENT: Pupils are round and equally reacting to light. EOMI. No scleral icterus. No conjunctival pallor. Normocephalic, atraumatic. No pharyngeal erythema. No thyromegaly. CARDIOVASCULAR: S1 and S2 present. No murmurs, rubs, or gallops. PULMONARY: Chest is clear to auscultation, no wheezing or crackles. ABDOMEN: Soft, nontender, nondistended, normoactive bowel sounds. No palpable organomegaly. MUSCULOSKELETAL: right foot cast seen EXTREMITIES: No cyanosis, clubbing, or pedal edema. NEUROLOGICAL: Gross neurological examination did not reveal any focal deficits. SKIN: No rashes. Assessment and plan History of hemorrhagic cerebrovascular accident (CVA) with residual deficit Epilepsy Cannabis abuse Opiate dependence, continuous Weaknes Right ankle pain Hyperkalemia Monitor vital signs Monitor CBC Monitor CMP Continue pain management per orthopedics Continue DVT prophylaxis per orthopedics Continue Synthroid Continue Keppra Aggressive bowel regimen to prevent opioid-induced constipation Resume home meds PT and OT consulted Labs and medication were reviewed.. Continue same treatment. Continue with symptomatic treatment. Resume home medication. Monitor labs and vitals. DVT and GI prophylaxis. Further recommendations as per clinical course of the patient Dictation was produced using [employer] dictation software. please excuse any grammatical, word or spelling errors. Objective - Vital Signs Vital signs: Vital Signs Temp 98.3 F 08/14/24 15:00 Pulse 81 08/14/24 15:00 Resp 17 08/14/24 15:00 BP 164/89 08/14/24 15:00 Pulse Ox 96 08/14/24 15:00 FiO2 Intake & Output 08/13/24 08/14/24 08/14/24 18:59 06:59 18:59 Output Total 700 1700 1175 Balance -700 -1700 -1175 Output: Urine 700 1700 1175 Other: Voiding Method Indwelling Catheter Indwelling Catheter # Voids 5 - Labs CBC & Chem 7: 08/12/24 07:35 08/12/24 07:35
[2024-08-15] MEDS: hydrALAZINE HCL 20 MG/ML 1 ML VIAL IVP STA (00:05)
--- NOTE | 2024-08-15 08:58 | P.PN ---
Subjective Progress Note Date: 08/15/24 This is a 59-year-old female who presented to the emergency department with complaints of weakness and hyperkalemia. Patient has a known history of a subarachnoid hemorrhage with hemorrhagic CVA and is homebound and relatively immobile. Patient is scheduled for ankle contracture repair tomorrow morning. Patient's potassium level has improved. She is seen this morning resting comfortably in bed. We will clear her for her surgery tomorrow, and anticipate discharge after her surgery tomorrow. 08/15/2024 Patient seen this morning laying in bed resting comfortably. Patient underwent ankle surgery Thursday and tolerated that well. Discharge planning currently working on placement for patient, working on authorizations. Objective - Vital Signs Vital signs: Vital Signs Temp 97.7 F 08/15/24 07:00 Pulse 88 08/15/24 07:00 Resp 18 08/15/24 07:00 BP 179/103 08/15/24 07:00 Pulse Ox 96 08/15/24 07:00 FiO2 Intake & Output 08/14/24 08/15/24 08/15/24 18:59 06:59 18:59 Output Total 1175 300 Balance -1175 -300 Output: Urine 1175 300 Other: Voiding Method Indwelling Catheter Indwelling Catheter Indwelling Catheter # Voids 400 - Constitutional General appearance: Present: cooperative, no acute distress - EENT Eyes: Present: PERRLA - Neck Neck: Present: normal ROM. Absent: lymphadenopathy, rigidity - Respiratory Respiratory: bilateral: CTA - Cardiovascular Heart sounds: normal: S1, S2 - Gastrointestinal General gastrointestinal: Present: soft. Absent: tenderness - Integumentary Integumentary: Present: normal, normal turgor - Musculoskeletal Musculoskeletal: Present: generalized weakness - Psychiatric Psychiatric: Present: A&O x's 3 - Labs CBC & Chem 7: 08/12/24 07:35 08/12/24 07:35 Assessment and Plan (1) History of hemorrhagic cerebrovascular accident (CVA) with residual deficit Current Visit: Yes Status: Acute Code(s): I69.30 - UNSPECIFIED SEQUELAE OF CEREBRAL INFARCTION SNOMED Code(s): 028235003163010 (2) Weakness Current Visit: Yes Status: Acute Code(s): R53.1 - WEAKNESS SNOMED Code(s): 76910632 (3) Cannabis abuse Current Visit: Yes Status: Acute Code(s): F12.10 - CANNABIS ABUSE, UNCOMPLI CATED SNOMED Code(s): 27077634 (4) Epilepsy Current Visit: Yes Status: Acute Code(s): G40.909 - EPILEPSY, UNSP, NOT INTRACTABLE, WITHOUT STATUS EPILEPTICUS SNOMED Code(s): 24233607 (5) Opiate dependence, continuous Current Visit: Yes Status: Acute Code(s): F11.20 - OPIOID DEPENDENCE, UNCOMPLICATED SNOMED Code(s): 011384568 (6) Hypertension Current Visit: Yes Status: Acute Code(s): I10 - ESSENTIAL (PRIMARY) HYPERTENSION SNOMED Code(s): 28909041 Plan: BP has been elevated, increase Norvasc to 10mg daily. Continue to work with discharge planning for placement. May discontinue cantu catheter. Patient seen and evaluated by nurse practitioner, physician in agreement with plan.
[2024-08-15] MEDS: amLODIPine 10 MG TAB PO SCH (09:29)
[2024-08-15 20:09] VITALS: RESP 16
--- NOTE | 2024-08-16 09:25 | P.DS ---
Providers Date of admission: 08/09/24 18:26 Attending physician: Robert Irizarry Primary care physician: Robert Irizarry - Discharge Diagnosis(es) (1) History of hemorrhagic cerebrovascular accident (CVA) with residual deficit Current Visit: Yes Status: Acute (2) Weakness Current Visit: Yes Status: Acute (3) Cannabis abuse Current Visit: Yes Status: Acute (4) Epilepsy Current Visit: Yes Status: Acute (5) Opiate dependence, continuous Current Visit: Yes Status: Acute (6) Hypertension Current Visit: Yes Status: Acute Hospital Course: This is a 59-year-old female who presented to the emergency department with complaints of weakness and hyperkalemia. Patient has a known history of a subarachnoid hemorrhage with hemorrhagic CVA and is homebound and relatively immobile. Patient underwent a planned ankle contracture repair during this admission and tolerated it well. Therapy is recommending subacute rehab. Patient's potassium level has improved she is feeling well and stable for discharge. Patient may be discharged when bed ready at subacute rehab. Patient seen and evaluated by nurse practitioner, physician in agreement with plan. Patient Condition at Discharge: Fair Plan - Discharge Summary New Discharge Prescriptions: Continue Levothyroxine Sodium [Synthroid] 50 mcg PO DAILY Omeprazole [PriLOSEC] 40 mg PO BID Fenofibrate 160 mg PO DAILY DULoxetine HCL [Cymbalta] 30 mg PO DAILY HYDROcodone/APAP 7.5-325MG [Uvalda 7.5-325] 1 tab PO TID PRN PRN Reason: Pain traZODone HCL 150 mg PO HS Tolterodine ER [Detrol LA] 4 mg PO HS levETIRAcetam [Keppra] 750 mg PO BID Pregabalin [Lyrica] 75 mg PO BID Atorvastatin [Lipitor] 20 mg PO HS FLUoxetine HCL [PROzac] 40 mg PO DAILY Mirabegron [Myrbetriq] 25 mg PO DAILY Baclofen [Lioresal] 10 mg PO HS Bisoprolol-Hctz 5-6.25 mg [Ziac 5-6.25 MG] 1 tab PO HS Midodrine HCl 10 mg PO BID Amitriptyline HCl [Elavil] 50 mg PO HS amLODIPine BESYLATE/BENAZEPRIL [Lotrel 5-10 mg Capsule] 1 cap PO DAILY Discharge Medication List Levothyroxine Sodium [Synthroid] 50 mcg PO DAILY 12/19/13 [History] Omeprazole [PriLOSEC] 40 mg PO BID 12/19/13 [History] Fenofibrate 160 mg PO DAILY 01/13/17 [History] Atorvastatin [Lipitor] 20 mg PO HS 03/21/22 [History] DULoxetine HCL [Cymbalta] 30 mg PO DAILY 03/09/24 [History] FLUoxetine HCL [PROzac] 40 mg PO DAILY 03/09/24 [History] HYDROcodone/APAP 7.5-325MG [Uvalda 7.5-325] 1 tab PO TID PRN 03/09/24 [History] traZODone HCL 150 mg PO HS 03/09/24 [History] Tolterodine ER [Detrol LA] 4 mg PO HS 06/01/24 [History] Mirabegron [Myrbetriq] 25 mg PO DAILY 07/13/24 [History] Pregabalin [Lyrica] 75 mg PO BID 07/13/24 [History] levETIRAcetam [Keppra] 750 mg PO BID 07/13/24 [History] Amitriptyline HCl [Elavil] 50 mg PO HS 08/09/24 [History] Baclofen [Lioresal] 10 mg PO HS 08/09/24 [History] Bisoprolol-Hctz 5-6.25 mg [Ziac 5-6.25 MG] 1 tab PO HS 08/09/24 [History] Midodrine HCl 10 mg PO BID 08/09/24 [History] amLODIPine BESYLATE/BENAZEPRIL [Lotrel 5-10 mg Capsule] 1 cap PO DAILY 08/09/24 [History] Follow up Appointment(s)/Referral(s): Robert Irizarry MD [Primary Care Provider] - 1-2 days Aristides Shankar DPM [Doctor of Osteopathic Medicine] - 2 Weeks Patient Instructions/Handouts: *Surgery [facility] - ([facility]) Discharge Instructins Foot Surgery Activity/Diet/Wound Care/Special Instructions: Keep the splint clean, dry, and intact. Do not remove Do not place weight on the operative leg Keep leg elevated when resting Take previously prescribed pain medications as needed Regular diet as tolerated Discharge Disposition: TRANSFER TO SNF/ECF
[2024-08-16 12:08] VITALS: BMI 21.4
[2024-08-16 14:50] VITALS: BP 156/99; PULSE 90; TEMP 98.4
== END 2024-08-16 15:49 ==
LOC: EC 12:41 → 6NMEDSUR 18:26
PROVIDERS: ADMIT Family Medicine; ATTEND Family Medicine
DX: M24.571 Contracture, right ankle (principal); M25.571 Pain in right ankle and joints of right foot; R53.1 Weakness; E87.5 Hyperkalemia; G40.909 Epilepsy, unspecified, not intractable, without status epilepticus; I10 Essential (primary) hypertension; K21.9 Gastro-esophageal reflux disease without esophagitis; E78.5 Hyperlipidemia, unspecified; E07.9 Disorder of thyroid, unspecified; F32.A Depression, unspecified; F41.9 Anxiety disorder, unspecified; F12.10 Cannabis abuse, uncomplicated; F11.20 Opioid dependence, uncomplicated; I69.30 Unspecified sequelae of cerebral infarction; Z74.01 Bed confinement status; Z87.891 Personal history of nicotine dependence; Z79.890 Hormone replacement therapy; Z79.899 Other long term (current) drug therapy; Z88.6 Allergy status to analgesic agent
CPT/HCPCS: 96361 ×2; 96374 ×2; 99285; 36415; 93005; 97530; 97162; 97166; 85379; 80053 ×2; 82140; 84132; 84484; 85025; 85027; 85610; 85730; 81003; 71046; 74019; 70450; 27685; G0378 ×8; J2250; J0360; J2710; J0690 ×2; J2405; J2003; J3010; J2704; J1171; J1596